=== PATIENT | male | born 1985 | race African-American/Black ===

== ENCOUNTER 2019-03-21 15:15 | Emergency (ER) | payer BC ==
[2019-03-21] MEDS ORDERED: cloNIDine 0.1 MG Tab PO ONE (15:34)
[2019-03-21] MEDS ORDERED: Ketorolac 60 MG/2 ML SDV IM ONE (15:40)
--- NOTE | 2019-03-21 15:53 | EDM.PDOC ---
ED HPI GENERAL MEDICAL PROBLEM - General Chief Complaint: Back Pain or Injury Stated Complaint: low back pain Time Seen by Provider: 03/21/19 15:23 Source of Information: Reports: Patient History Limitations: Reports: No Limitations - History of Present Illness INITIAL COMMENTS - FREE TEXT/NARRATIVE: HISTORY AND PHYSICAL: History of present illness: Patient is a 33-year-old male presents to the ED today for concern of low back pain/injury that occurred 1 week ago. Patient states he was filling up with those. Jugular water at [facility] when he had bent over incorrectly and felt a burning in his low back. Patient states that since then he's had a out of 10 back pain. Patient states he has taken ibuprofen without relief of symptoms. Patient states he does have a history of high blood pressure but has never received treatment for it. He states his blood pressure today is typical and normal for him on past visits he has had in several other clinics. Patient denies any other symptoms at this time. Patient denies loss or retention of bowel and bladder or saddle anesthesia. Patient denies fever, chills, chest pain, shortness of breath, or cough. Denies headache, neck stiff ness, change in vision, syncope, or near syncope. Denies nausea, vomiting, abdominal pain, diarrhea, constipation, or dysuria. Has not noted any blood in urine or stool. Patient has been eating and drinking appropriately. Review of systems: As per history of present illness and below otherwise all systems reviewed and negative. Past medical history: As per history of present illness and as reviewed below otherwise noncontributory. Surgical history: As per history of present illness and as reviewed below otherwise noncontributory. Social history: See social history for further information Family history: As per history of present illness and as reviewed below otherwise noncontributory. Physical exam: General: Patient is alert, oriented, and in no acute distress. Patient sitting comfortably on exam table. HEENT: Atraumatic, normocephalic, pupils equal and reactive bilaterally, negative for conjunctival pallor or scleral icterus, mucous membranes moist, TMs normal bilaterally, throat clear, neck supple, nontender, trachea midline. No drooling or trismus noted. No meningeal signs. No hot potato voice noted. Lungs: Clear to auscultation, breath sounds equal bilaterally, chest nontender. Heart: S1S2, regular rate and rhythm without overt murmur Abdomen: Soft, nondistended, nontender. Negative for masses or hepatosplenomegaly. Negative for costovertebral tenderness. Pelvis: Stable nontender. Genitourinary: Deferred. Rectal: Deferred. Skin: Intact, warm, dry. No lesions or rashes noted. Extremities/musculoskeletal: Atraumatic, negative for cords or calf pain. Neurovascular unremarkable. No obvious deformities of the complete spine. No step-offs, crepitus, or pain to palpation of the spinous process of the complete spine. Moderate pain to palpation of the paraspinous muscles surrounding the lumbar spine. Patient has full range of motion of the cervical, thoracic, and lumbar spine. Neuro: Awake, alert, oriented. Cranial nerves II through XII unremarkable. Cerebellum unremarkable. Motor and sensory unremarkable throughout. Exam nonfocal. Notes: Discussed the importance for follow-up with primary care provider. Voices understanding and is agreeable to plan of care. Denies any further questions or concerns at this time. Diagnostics: Lumbar x-ray, UA, Therapeutics: Clonidine, Toradol, Norflex Prescription: Diclofenac, Flexeril Impression: Low back pain/injury, unspecified History of untreated hypertension Plan: 1. Take medications as prescribed. You can also use Tylenol as directed for pain and discomfort. 2. Rest, ice, elevate the affected area. You can apply ice and or heat 15 minutes on, 15 minutes off. 3. Follow up with the primary care provider as discussed. Return to the ED as needed and as discussed. Definitive disposition and diagnosis as appropriate pending reevaluation and review of above. Back Pain Score (Numeric/FACES): 8 - Related Data Allergies Allergy/AdvReac Type Severity Reaction Status Date / Time No Known Allergies Allergy Verified 03/21/19 15:32 Home Meds: Home Meds Cyclobenzaprine [Flexeril] 10 mg PO TID PRN #10 tab 03/21/19 [Rx] Diclofenac Sodium [Voltaren] 75 mg PO BIDMEALS PRN #12 tab.cr 03/21/19 [Rx] Past Medical History HEENT History: Reports: None Cardiovascular History: Reports: Hypertension Respiratory History: Reports: None Gastrointestinal History: Reports: None Genitourinary History: Reports: None Musculoskeletal History: Reports: None Neurological History: Reports: None Psychiatric History: Reports: None Endocrine/Metabolic History: Reports: None Hematologic History: Reports: None Immunologic History: Reports: None Oncologic (Cancer) History: Reports: None Dermatologic History: Reports: None - Infectious Disease History Infectious Disease History: Reports: None - Past Surgical History Head Surgeries/Procedures: Reports: None Social & Family History - Family History Family Medical History: Noncontributory - Tobacco Use Smoking Status *Q: Never Smoker Second Hand Smoke Exposure: No - Caffeine Use Caffeine Use: Reports: Coffee - Recreational Drug Use Recreational Drug Use: No ED ROS GENERAL - Review of Systems Review Of Systems: ROS reveals no pertinent complaints other than HPI. ED EXAM,LOWER BACK PAIN/INJURY - Physical Exam Exam: See Below (See dictation) Course - Vital Signs Last Recorded V/S: Last Vital Signs Temp 36.9 C 03/21/19 15:33 Pulse 91 03/21/19 16:37 Resp 16 03/21/19 16:37 BP 174/109 H 03/21/19 16:37 Pulse Ox 97 03/21/19 16:37 - Orders/Labs/Meds Labs: Laboratory Tests 03/21/19 Range/Units 16:10 Urine Color YELLOW Urine Appearance CLEAR Urine pH 7.5 (5.0-8.0) Ur Specific [place] 1.015 (1.001-1.035) Urine Protein NEGATIVE (NEGATIVE) mg/dL Urine Glucose (UA) NEGATIVE (NEGATIVE) mg/dL Urine Ketones NEGATIVE (NEGATIVE) mg/dL Urine Occult Blood NEGATIVE (NEGATIVE) Urine Nitrite NEGATIVE (NEGATIVE) Urine Bilirubin NEGATIVE (NEGATIVE) Urine Urobilinogen 0.2 (<2.0) EU/dL Ur Leukocyte Esterase NEGATIVE (NEGATIVE) Meds: Medications Discontinued Medications Generic Name Dose Route Start Last Admin Trade Name Freq PRN Reason Stop Dose Admin Clonidine HCl 0.2 mg 03/21/19 15:34 03/21/19 15:44 Catapres PO 03/21/19 15:35 0.2 mg ONETIME ONE Administration Ketorolac Tromethamine 60 mg 03/21/19 15:40 03/21/19 15:48 Toradol IM 03/21/19 15:41 60 mg ONETIME ONE Administration Orphenadrine Citrate 60 mg 03/21/19 15:40 03/21/19 15:48 Norflex IM 03/21/19 15:41 60 mg NOW STA Administration Departure - Departure Time of Disposition: 17:02 Disposition: Home, Self-Care 01 Clinical Impression: History of hypertension Low back pain Qualifiers: Chronicity: acute Back pain laterality: unspecified Sciatica presence: without sciatica Qualified Code(s): M54.5 - Low back pain - Discharge Information Prescriptions: Cyclobenzaprine [Flexeril] 10 mg PO TID PRN #10 tab PRN Reason: Spasms Diclofenac Sodium [Voltaren] 75 mg PO BIDMEALS PRN #12 tab.cr PRN Reason: Pain Instructions: Acute Back Pain, Adult Referrals: PCP,None [Primary Care Provider] - Forms: ED Department Discharge Additional Instructions: The following information is given to patients seen in the emergency department who are being discharged to home. This information is to outline your options for follow-up care. We provide all patients seen in our emergency department with a follow-up referral. The need for follow-up, as well as the timing and circumstances, are variable depending upon the specifics of your emergency department visit. If you don't have a primary care physician on staff, we will provide you with a referral. We always advise you to contact your personal physician following an emergency department visit to inform them of the circumstance of the visit and for follow-up with them and/or the need for any referrals to a consulting specialist. The emergency department will also refer you to a specialist when appropriate. This referral assures that you have the opportunity for follow-up care with a specialist. All of these measure are taken in an effort to provide you with optimal care, which includes your follow-up. Under all circumstances we always encourage you to contact your private physician who remains a resource for coordinating your care. When calling for follow-up care, please make the office aware that this follow-up is from your recent emergency room visit. If for any reason you are refused follow-up, please contact the [facility] Emergency Department at and asked to speak to the emergency department charge nurse. [facility] Primary [facility] [address] [place] [id number] [id number] 1. Take medications as prescribed. You can also use Tylenol as directed for pain and discomfort. 2. Rest, ice, elevate the affected area. You can apply ice and or heat 15 minutes on, 15 minutes off. 3. Follow up with the primary care provider as discussed. Return to the ED as needed and as discussed.
--- NOTE | 2019-03-21 16:56 | CR ---
INDICATION: Back pain TECHNIQUE: Lumbar spine 3 view. COMPARISON: None FINDINGS: Bones: Straightening of the lumbar spine with normal alignment. No fractures or significant bone lesions. Joints: Mild disc space narrowing L4-L5 with anterior osteophytic changes. Soft tissues: Unremarkable. IMPRESSION: Disc space narrowing L4-L5 with anterior osteophytic changes. Straightening of the lumbar spine. Dictated by Bonifacio Mejias MD @ 03/21/2019 4:54:26 PM Dictated by: Bonifacio Mejias MD @ 03/21/2019 16:54:29 (Electronically Signed)
== END 2019-03-21 17:15 | disposition home or self-care (01) ==
LOC: MW.ED 15:15
DX: S39.92XA Unspecified injury of lower back, initial encounter (principal); I10 Essential (primary) hypertension; Z79.899 Other long term (current) drug therapy; X50.1XXA Overexertion from prolonged static or awkward postures, initial encounter
CPT/HCPCS: 72100; 81003; 96372; 99283; A9270; J1885; J2360

== ENCOUNTER 2019-11-12 18:25 | Emergency (ER) | payer BC ==
--- NOTE | 2019-11-12 19:13 | EDM.PDOC ---
ED HPI GENERAL MEDICAL PROBLEM - General Chief Complaint: Cardiovascular Problem Stated Complaint: DIZZNESS HEADACHE Time Seen by Provider: 11/12/19 19:06 Source of Information: Reports: Patient History Limitations: Reports: No Limitations - History of Present Illness INITIAL COMMENTS - FREE TEXT/NARRATIVE: 34-year-old gentleman presents to the emergency room with a chief complaint of headache and dizziness. Patient states that he has been having headaches for the past 2 to 3 days and he is dizzy also. Patient cannot explain why he is dizzy. Patient denies fever chills cough. Onset: Today Duration: Day(s): Location: Reports: Head Quality: Reports: Dull Severity: Moderate Improves with: Reports: None Worsens with: Reports: None Associated Symptoms: Reports: No Other Symptoms - Related Data Allergies Allergy/AdvReac Type Severity Reaction Status Date / Time No Known Allergies Allergy Verified 11/12/19 18:33 Home Meds: Home Meds amLODIPine [Norvasc] 5 mg PO DAILY 11/12/19 [History] hydroCHLOROthiazide [Hydrochlorothiazide] 25 mg PO DAILY 11/12/19 [History] Past Medical History HEENT History: Reports: None Cardiovascular History: Reports: Hypertension Respiratory History: Reports: None Gastrointestinal History: Reports: None Genitourinary History: Reports: None Musculoskeletal History: Reports: None Neurological History: Reports: None Psychiatric History: Reports: None Endocrine/Metabolic History: Reports: None Hematologic History: Reports: None Immunologic History: Reports: None Oncologic (Cancer) History: Reports: None Dermatologic History: Reports: None - Infectious Disease History Infectious Disease History: Reports: None - Past Surgical History Head Surgeries/Procedures: Reports: None HEENT Surgical History: Reports: None Cardiovascular Surgical History: Reports: None Respiratory Surgical History: Reports: None GI Surgical History: Reports: None Male Surgical History: Reports: None Endocrine Surgical History: Reports: None Neurological Surgical History: Reports: None Musculoskeletal Surgical History: Reports: None Oncologic Surgical History: Reports: None Social & Family History - Family History Family Medical History: Noncontributory - Tobacco Use Smoking Status *Q: Never Smoker Second Hand Smoke Exposure: No - Caffeine Use Caffeine Use: Reports: None - Recreational Drug Use Recreational Drug Use: No ED ROS GENERAL - Review of Systems Review Of Systems: See Below Constitutional: Reports: No Symptoms HEENT: Reports: No Symptoms Respiratory: Reports: No Symptoms Cardiovascular: Reports: No Symptoms, Blood Pressure Problem Endocrine: Reports: No Symptoms GI/Abdominal: Reports: No Symptoms : Reports: No Symptoms Musculoskeletal: Reports: No Symptoms Skin: Reports: No Symptoms Neurological: Reports: Dizziness, Headache Psychiatric: Reports: No Symptoms Hematologic/Lymphatic: Reports: No Symptoms Immunologic: Reports: No Symptoms ED EXAM, GENERAL - Physical Exam Exam: See Below Exam Limited By: No Limitations General Appearance: Alert, WD/WN, No Apparent Distress Eye Exam: Bilateral Eye: PERRL Ear Exam: Bilateral Ear: Auricle Normal, Canal Normal, TM normal Nose: Normal Inspection, Normal Mucosa, No Blood Throat/Mouth: Normal Inspection, Normal Lips, Normal Teeth Head: Atraumatic, Normocephalic Neck: Normal Inspection, Supple, Non-Tender, Full Range of Motion Respiratory/Chest: No Respiratory Distress, Lungs Clear, Normal Breath Sounds, No Accessory Muscle Use, Chest Non-Tender Cardiovascular: Normal Peripheral Pulses, Regular Rate, Rhythm, No Edema GI/Abdominal: Normal Bowel Sounds, Soft, Non-Tender (Male) Exam: Deferred Rectal (Males) Exam: Deferred Back Exam: Normal Inspection, Full Range of Motion Extremities: Normal Inspection, Normal Range of Motion, No Pedal Edema, Normal Capillary Refill Psychiatric: Normal Affect, Normal Mood Skin Exam: Warm, Dry, Intact, Normal Color, No Rash Lymphatic: No Adenopathy Course - Vital Signs Text/Narrative:: The patient's CAT scan shows questionable ischemic changes questionable demyelinating disease. Patient will be followed with primary care to follow this. Patient's blood pressure came down on its own without medication to 130 systolic over 80.. Assessment on this patient is viral syndrome/dizziness : Patient will be given anti-inflammatory medications. Last Recorded V/S: Last Vital Signs Temp 97.6 F 11/12/19 18:31 Pulse 88 11/12/19 19:53 Resp 18 11/12/19 18:31 BP 148/96 H 11/12/19 19:53 Pulse Ox 96 11/12/19 19:53 - Orders/Labs/Meds Labs: Laboratory Tests 11/12/19 11/12/19 Range/Units 19:25 19:25 WBC 6.41 (4.0-11.0) K/uL RBC 5.17 (4.50-5.90) M/uL Hgb 14.1 (13.0-17.0) g/dL Hct 42.6 (38.0-50.0) % MCV 82.4 (80.0-98.0) fL MCH 27.3 (27.0-32.0) pg MCHC 33.1 (31.0-37.0) g/dL RDW Std Deviation 39.9 (28.0-62.0) fl RDW Coeff of Lady 13 (11.0-15.0) % Plt Count 208 (150-400) K/uL MPV 10.20 (7.40-12.00) fL Neut % (Auto) 52.8 (48.0-80.0) % Lymph % (Auto) 38.8 (16.0-40.0) % B[place]so[place] % (Auto) 7.0 (0.0-15.0) % Eos % (Auto) 1.1 (0.0-7.0) % Baso % (Auto) 0.3 (0.0-1.5) % Neut # (Auto) 3.4 (1.4-5.7) K/uL Lymph # (Auto) 2.5 H (0.6-2.4) K/uL [place] # (Auto) 0.5 (0.0-0.8) K/uL Eos # (Auto) 0.1 (0.0-0.7) K/uL Baso # (Auto) 0.0 (0.0-0.1) K/uL Nucleated RBC % 0.0 /100WBC Nucleated RBCs # 0 K/uL Sodium 138 (136-148) mmol/L Potassium 3.7 (3.5-5.1) mmol/L Chloride 101 (98-107) mmol/L Carbon Dioxide 29.6 (21.0-32.0) mmol/L BUN 14 (7.0-18.0) mg/dL Creatinine 1.3 (0.8-1.3) mg/dL Est Cr Clr Drug Dosing 82.67 mL/min Estimated GFR (MDRD) > 60.0 ml/min Glucose 129 H (74-106) mg/dL Calcium 9.0 (8.5-10.1) mg/dL Total Bilirubin 0.3 (0.2-1.0) mg/dL AST 20 (15-37) IU/L ALT 34 (14-63) IU/L Alkaline Phosphatase 82 (46-116) U/L Total Protein 7.7 (6.4-8.2) g/dL Albumin 3.9 (3.4-5.0) g/dL Globulin 3.8 (2.6-4.0) g/dL Albumin/Globulin Ratio 1.0 (0.9-1.6) Meds: Medications Discontinued Medications Generic Name Dose Route Start Last Admin Trade Name Freq PRN Reason Stop Dose Admin Atenolol 25 mg 11/12/19 19:16 11/12/19 20:16 Tenormin PO 11/12/19 19:17 Not Given ONETIME ONE Departure - Departure Time of Disposition: 20:38 Disposition: Home, Self-Care 01 Condition: Good Clinical Impression: Viral syndrome Instructions: Viral Illness, Adult Referrals: Narciso Thomas DO [Primary Care Provider] - Forms: ED Department Discharge Sepsis Event Note - Evaluation Sepsis Screening Result: No Definite Risk - Focused Exam Vital Signs: Vital Signs Temp Pulse Resp BP Pulse Ox 11/12/19 19:53 88 148/96 H 96 11/12/19 18:31 97.6 F 95 18 173/105 H 98 Date Exam was Performed: 11/12/19 Time Exam was Performed: 20:36
[2019-11-12] MEDS ORDERED: Atenolol 25 MG Tab PO ONE (19:16)
[2019-11-12 19:57] LABS: BLOOD UREA NITROGEN,BUN 14 mg/dL (7.0-18.0); CARBON DIOXIDE,CO2 29.6 mmol/L (21.0-32.0); CHLORIDE,CL 101 mmol/L (98-107); GLUCOSE RANDOM 129 mg/dL (74-106); POTASSIUM,K 3.7 mmol/L (3.5-5.1); SODIUM,NA 138 mmol/L (136-148)
--- NOTE | 2019-11-12 20:01 | CT ---
INDICATION: Dizziness COMPARISON: None available TECHNIQUE: CT examination of the head was performed with 3 mm thick axial sections without intravenous contrast. Images were obtained from the vertex of the skull through the skull base, and I examined the images with the brain and bone windows. Please note that all CT scans at this facility use dose modulation, iterative reconstruction, and/or weight-based dosing when appropriate to reduce radiation dose to as low as reasonably achievable. FINDINGS: There are multiple low-density regions scattered throughout the periventricular and subcortical white matter throughout both cerebral hemispheres these are of different density, some quite low in density, others only mildly low intensity. There is no associated mass effect with any of these lesions. A similar low-density lesion is seen in the right superior maki. A small lesion is seen in the right caudate head. The findings are suspicious for multiple areas of small vessel ischemia, quite unusual for patient of this age. The differential for small-vessel ischemic changes in a young patient includes vasculitis, sickle cell disease, or Bullock Bullock. The absence of large vessel ischemia argues against multiple emboli. The findings could be the result of demyelination as seen in multiple sclerosis, but the involvement of the maki and right caudate head would be atypical. The ventricles and sulci are normal in appearance for the patient`s age. There is asymmetry of the lateral ventricles, with the left lateral ventricle being slightly larger than the right, within limits of normal variation. The visualized portions of the orbits are normal in appearance. The visualized paranasal sinuses and mastoids are clear. The osseous structures are normal in their appearance with no sign of abnormality in the skull base or calvarium. There is an area of soft tissue thickening of the high central and right posterior parietal scalp and subgaleal region, consistent with an old injury. There is no sign of injury to the underlying skull or brain. IMPRESSION: No sign of acute injury to the brain. Findings consistent with moderate small vessel ischemia, much more prominent than expected for a patient of this age. Please see the discussion above. Cannot exclude demyelination, although the distribution of lesions is not typical for demyelination. Please note that all CT scans at this facility use dose modulation, iterative reconstruction, and/or weight-based dosing when appropriate to reduce radiation dose to as low as reasonably achievable. Dictated by Jabari Griffiths MD @ Nov 12 2019 7:50PM Signed by Dr. Jabari Griffiths @ Nov 12 2019 7:59PM
== END 2019-11-12 20:54 | disposition home or self-care (01) ==
LOC: MW.ED 18:25
DX: B34.9 Viral infection, unspecified (principal); I10 Essential (primary) hypertension; Z79.899 Other long term (current) drug therapy
CPT/HCPCS: 36415; 70450; 70450-26; 80053; 85025; 93005; 99282; 99284-25

== ENCOUNTER 2021-01-06 00:39 | Emergency (ER) | payer SELFPAY ==
[2021-01-06] MEDS ORDERED: Sodium Chloride 0.9% 2.5 ML Syringe FLUSH PRN (01:03)
[2021-01-06] MEDS ORDERED: Sodium Chloride 0.9% 10 ML Syringe FLUSH PRN (01:03)
[2021-01-06] MEDS ORDERED: Ondansetron 4 MG/2 ML SDV IVPUSH ONE (01:04)
[2021-01-06] MEDS ORDERED: Sodium Chloride 0.9% 1,000 ML IV ONE ×2 (01:04→01:51)
[2021-01-06 01:40] LABS: BLOOD UREA NITROGEN,BUN 16 mg/dL (7.0-18.0); CHLORIDE,CL 98 mmol/L (98-107); GLUCOSE RANDOM 302 mg/dL (74-106); POTASSIUM,K 3.5 mmol/L (3.5-5.1); SODIUM,NA 135 mmol/L (136-148)
--- NOTE | 2021-01-06 01:40 | CT ---
INDICATION: Dizzy TECHNIQUE: CT Head without i.v. contrast. Coronal and sagittal reformats were obtained. COMPARISON: 11/12/2019 FINDINGS: CSF space: The ventricles are normal for age. 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 [id number] but stable patchy regions of low attenuation are present in the periventricular white matter. No mass-effect or midline shift is seen. Calvarium: The visualized paranasal sinuses are well aerated. The mastoid air cells are clear. The visualized orbits are grossly unremarkable. The calvarium is unremarkable in appearance with no fractures identified. IMPRESSIONS: 1. No evidence of acute infarction, intracranial hemorrhage, or mass-effect seen. 2. 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 [id number] but stable patchy regions of low attenuation are present in the periventricular white matter. Clinical correlation is recommended to exclude multiple sclerosis, vasculitis, moyamoya, mitochondrial encephalopathy, or CADASIL. Dictated by Burton Dumont MD @ 01/06/2021 1:39:13 AM Please note that all CT scans at this facility use dose modulation, iterative reconstruction, and/or weight-based dosing when appropriate to reduce radiation dose to as low as reasonably achievable. Dictated by: Burton Dumont MD @ 01/06/2021 01:39:20 (Electronically Signed)
[2021-01-06] MEDS ORDERED: Diltiazem 180 MG Cap.CD PO STA (02:55)
--- NOTE | 2021-01-06 03:02 | EDM.PDOC ---
ED HPI GENERAL MEDICAL PROBLEM - General Chief Complaint: General Stated Complaint: DIZZY Time Seen by Provider: 01/06/21 01:05 - History of Present Illness INITIAL COMMENTS - FREE TEXT/NARRATIVE: HISTORY AND PHYSICAL: History of present illness: 35-year-old gentleman with a history significant for hypertension who presents ER today complaining of dizziness, nausea, vomiting x1 day. Patient reports that he has been noncompliant with his medications and does not have a physician at this time but he is recently acquired insurance and will be able to get a physician. Patient denies any recent fevers, shakes, chills, diarrhea, dysuria, frequency, urgency, chest pain, shortness of breath, abdominal pain, URI symptoms. Patient reports that he feels weak when he walks. Patient reports when he stands he feels like the room is spinning but feels better when he is laying down. Patient denies any history of diabetes. Patient denies any history of strokes or heart attacks in the past although his prior CT had some concerns regarding old strokes. Review of systems: As per history of present illness and below otherwise all systems reviewed and negative. Past medical history: As per history of present illness and as reviewed below otherwise noncontributory. Surgical history: As per history of present illness and as reviewed below otherwise noncontributory. Social history: No reported history of drug or alcohol abuse. Family history: As per history of present illness and as reviewed below otherwise noncontributory. Physical exam: This patient was seen and evaluated during the 2019 SARS-CoV-2 novel coronavirus pandemic period. Community viral transmission is ongoing at time of this encounter and the emergency department is operating under pandemic response procedures. Constitutional: Patient is oriented to person, place, and time. Appears well- developed and well-nourished. No distress. HEENT: Moist mucous membranes Head: Normocephalic and atraumatic Eyes: Right eye exhibits no discharge. Left eye exhibits no discharge. No scleral icterus, no papilledema, pupils equally round and reactive to light, extraocular motions intact, no nystagmus. Neck: Normal range of motion. No tracheal deviation present. Neck supple, no nuchal rigidity, no photophobia, no Kernig's sign or Brudzinski sign, patient does not present with signs or symptoms of be consistent with meningitis. Cardiovascular: Normal rate and regular rhythm. Pulmonary: Effort normal, no respiratory distress. No wheezing rales or rhonchi Abd: Soft, nondistended, no rebound/guarding, no psoas or obturator signs, no tenderness at Mcberney's point, no Lockhart's sign. Pt does not present with an exam that would be consistent with an acute surgical abdomen at this time, nontender to palpation Musculoskeletal: Normal range of motion no peripheral edema Neuro: A&Ox3. Cranial nerves II-XII grossly intact, 5/5 strength to bilateral upper and lower extremities, sensation intact to bilateral upper and lower extremities, no nystagmus, PERRLA, EOMI, normal speech, proprioception intact to bilateral lower extremities, normal finger to nose test, gait normal. Skin: [place], warm and dry. Psychiatric: Normal mood and affect. Behavior is normal. Judgment and thought content normal. Nursing note and vital signs have been reviewed Diagnostics: Patient's labs were obtained. Patient does have a slightly elevated blood sugar of 300. Patient's urinalysis is unremarkable. Patient's UDS and alcohol levels are negative. EKG: As interpreted by ER physician: Lorrie: Nonspecific ST-T wave abnormalities Normal axis No evidence of ST elevation [place] Normal sinus rhythm heart rate of 86 CT the head reveals no evidence of acute infarction, intracranial hemorrhage or mass-effect. 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 Mild to moderate but stable patchy regions of low-attenuation are present in the periventricular white matter. Clinical correlation is recommended. Fluid multiple sclerosis, vasculitis, moyamoya, mitochondrial encephalopathy or cadasil. Copy of the CT scan was given to the patient. I have discussed the abnormalities including the chronic changes that were identified on the CT scan with the patient and the need to follow-up with his primary care physician. Therapeutics: Cardizem 180 CD NSS x2 L Zofran Assessment and plan: This is a 35-year-old gentleman who presents to the ER today complaining of nausea, dizziness, vomiting and was noted to have a markedly elevated blood pressure. Patient reports he has been noncompliant for 1 year with his medication regimen. Patient denies any other neurological symptoms. Patient has no other complaints at this time. Etiology the patient's symptoms are unclear however it is likely multifactorial. We will attempt to assist with initiating correction of his blood pressure with Cardizem. Patient will be given a dose here in the ED and will be discharged with a prescription for Cardizem 180 CD to take daily. Patient has been instructed as to the need to follow-up with a primary care physician to follow his blood pressure. Patient was also informed of his elevated blood sugar and the need to see his doctor to assist him with dietary changes. Patient has been given 2 L of fluid and we will repeat his blood sugar prior to discharge. Patient be discharged home with a prescription for Zofran to assist with his symptoms of nausea. Patient currently reports that his dizziness is resolved after the IV fluids and his nausea also has resolved and he has been tolerating liquids in the ED. Reassessment at the time of disposition demonstrates that the patient is in no acute distress. The patient has remained stable throughout the entire ED visit and is without objective evidence for acute process requiring urgent intervention or hospitalization. The patient is stable for discharge, counseling is provided as documented above, discussed symptomatic treatment and specific conditions for return. I have spoken with the patient/caregiver and discussed todays findings, in addition to providing specific details for the plan of care. Questions are answered and there is agreement with the plan. Definitive disposition and diagnosis as appropriate pending reevaluation and review of above. - Related Data Allergies Allergy/AdvReac Type Severity Reaction Status Date / Time No Known Allergies Allergy Verified 01/06/21 00:55 Home Meds: Home Meds amLODIPine [Norvasc] 5 mg PO DAILY 11/12/19 [History] hydroCHLOROthiazide [Hydrochlorothiazide] 25 mg PO DAILY 11/12/19 [History] Ondansetron [Zofran ODT] 4 mg PO Q6H PRN #12 tab.dis 01/06/21 [Rx] dilTIAZem HCL [Cardizem Cd] 180 mg PO DAILY #30 cap.er.24h 01/06/21 [Rx] Past Medical History HEENT History: Reports: None Cardiovascular History: Reports: Hypertension Respiratory History: Reports: None Gastrointestinal History: Reports: None Genitourinary History: Reports: None Musculoskeletal History: Reports: None Neurological History: Reports: None Psychiatric History: Reports: Anxiety Endocrine/Metabolic History: Reports: None Hematologic History: Reports: None Immunologic History: Reports: None Oncologic (Cancer) History: Reports: None Dermatologic History: Reports: None - Infectious Disease History Infectious Disease History: Reports: None - Past Surgical History Head Surgeries/Procedures: Reports: None HEENT Surgical History: Reports: None Cardiovascular Surgical History: Reports: None Respiratory Surgical History: Reports: None GI Surgical History: Reports: None Male Surgical History: Reports: None Endocrine Surgical History: Reports: None Neurological Surgical History: Reports: None Musculoskeletal Surgical History: Reports: None Oncologic Surgical History: Reports: None Social & Family History - Family History Family Medical History: No Pertinent Family History - Caffeine Use Caffeine Use: Reports: None - Recreational Drug Use Recreational Drug Use: No ED ROS GENERAL - Review of Systems Review Of Systems: See Below ED EXAM, GENERAL - Physical Exam Exam: See Below Course - Vital Signs Last Recorded V/S: Last Vital Signs Temp 96.5 F L 01/06/21 00:50 Pulse 88 01/06/21 02:30 Resp 18 01/06/21 02:30 BP 167/113 H 01/06/21 02:30 Pulse Ox 95 01/06/21 02:30 - Orders/Labs/Meds Orders: Active Orders 24 hr Category Date Time Status EKG Documentation Completion [RC] AM Care 01/06/21 01:03 Active Diltiazem [Cardizem CD] Med 01/06/21 02:55 Stat 180 mg PO ONETIME STA Sodium Chloride 0.9% [Saline Flush] Med 01/06/21 01:03 Active 10 ml FLUSH ASDIRECTED PRN Sodium Chloride 0.9% [Saline Flush] Med 01/06/21 01:03 Active 2.5 ml FLUSH ASDIRECTED PRN Saline Lock Insert [OM.PC] Stat Oth 01/06/21 01:03 Ordered Medication Orders Sodium Chloride (Saline Flush) 10 ml FLUSH ASDIRECTED PRN PRN Reason: Keep Vein Open Sodium Chloride (Saline Flush) 2.5 ml FLUSH ASDIRECTED PRN PRN Reason: Keep Vein Open Labs: Laboratory Tests 01/06/21 01/06/21 01/06/21 Range/Units 01:05 01:05 01:05 WBC 6.31 (4.0-11.0) K/uL RBC 5.21 (4.50-5.90) M/uL Hgb 13.5 (13.0-17.0) g/dL Hct 41.0 (38.0-50.0) % MCV 78.7 L (80.0-98.0) fL MCH 25.9 L (27.0-32.0) pg MCHC 32.9 (31.0-37.0) g/dL RDW Std Deviation 38.2 (28.0-62.0) fl RDW Coeff of Lady 13 (11.0-15.0) % Plt Count 180 (150-400) K/uL MPV 11.20 (7.40-12.00) fL Neut % (Auto) 41.1 L (48.0-80.0) % Lymph % (Auto) 49.3 H (16.0-40.0) % Bowman % (Auto) 8.2 (0.0-15.0) % Eos % (Auto) 1.1 (0.0-7.0) % Baso % (Auto) 0.3 (0.0-1.5) % Neut # (Auto) 2.6 (1.4-5.7) K/uL Lymph # (Auto) 3.1 H (0.6-2.4) K/uL Bowman # (Auto) 0.5 (0.0-0.8) K/uL Eos # (Auto) 0.1 (0.0-0.7) K/uL Baso # (Auto) 0.0 (0.0-0.1) K/uL Sodium 135 L (136-148) mmol/L Potassium 3.5 (3.5-5.1) mmol/L Chloride 98 (98-107) mmol/L Carbon Dioxide 26.0 (21.0-32.0) mmol/L BUN 16 (7.0-18.0) mg/dL Creatinine 1.5 H (0.8-1.3) mg/dL Est Cr Clr Drug Dosing 73.21 mL/min Estimated GFR (MDRD) > 60.0 ml/min Glucose 302 H (74-106) mg/dL Calcium 9.1 (8.5-10.1) mg/dL Total Bilirubin 0.3 (0.2-1.0) mg/dL AST 19 (15-37) IU/L ALT 34 (14-63) IU/L Alkaline Phosphatase 94 (46-116) U/L Troponin I < 0.050 (0.000-0.056) ng/mL Total Protein 7.8 (6.4-8.2) g/dL Albumin 3.7 (3.4-5.0) g/dL Globulin 4.1 H (2.6-4.0) g/dL Albumin/Globulin Ratio 0.9 (0.9-1.6) Lipase 90 (73-393) U/L Urine Color Urine Appearance Urine pH (5.0-8.0) Ur Specific [place] (1.001-1.035) Urine Protein (NEGATIVE) mg/dL Urine Glucose (UA) (NEGATIVE) mg/dL Urine Ketones (NEGATIVE) mg/dL Urine Occult Blood (NEGATIVE) Urine Nitrite (NEGATIVE) Urine Bilirubin (NEGATIVE) Urine Urobilinogen (<2.0) EU/dL Ur Leukocyte Esterase (NEGATIVE) Urine RBC (0-2/HPF) Urine WBC (0-5/HPF) Ur Epithelial Cells (NONE-FEW) Urine Bacteria (NEGATIVE) Urine Mucus (NONE-MOD) Urine Opiates Screen (NEGATIVE) Ur Oxycodone Screen (NEGATIVE) Urine Methadone Screen (NEGATIVE) Ur Barbiturates Screen (NEGATIVE) Ur Phencyclidine Scrn (NEGATIVE) Ur Amphetamine Screen (NEGATIVE) U Methamphetamines Scrn (NEGATIVE) U Benzodiazepines Scrn (NEGATIVE) U Cocaine Metab Screen (NEGATIVE) U Marijuana (THC) Screen (NEGATIVE) Ethyl Alcohol < 3.0 mg/dL 01/06/21 01/06/21 Range/Units 02:25 02:25 WBC (4.0-11.0) K/uL RBC (4.50-5.90) M/uL Hgb (13.0-17.0) g/dL Hct (38.0-50.0) % MCV (80.0-98.0) fL MCH (27.0-32.0) pg MCHC (31.0-37.0) g/dL RDW Std Deviation (28.0-62.0) fl RDW Coeff of Lady (11.0-15.0) % Plt Count (150-400) K/uL MPV (7.40-12.00) fL Neut % (Auto) (48.0-80.0) % Lymph % (Auto) (16.0-40.0) % Bowman % (Auto) (0.0-15.0) % Eos % (Auto) (0.0-7.0) % Baso % (Auto) (0.0-1.5) % Neut # (Auto) (1.4-5.7) K/uL Lymph # (Auto) (0.6-2.4) K/uL Bowman # (Auto) (0.0-0.8) K/uL Eos # (Auto) (0.0-0.7) K/uL Baso # (Auto) (0.0-0.1) K/uL Sodium (136-148) mmol/L Potassium (3.5-5.1) mmol/L Chloride (98-107) mmol/L Carbon Dioxide (21.0-32.0) mmol/L BUN (7.0-18.0) mg/dL Creatinine (0.8-1.3) mg/dL Est Cr Clr Drug Dosing mL/min Estimated GFR (MDRD) ml/min Glucose (74-106) mg/dL Calcium (8.5-10.1) mg/dL Total Bilirubin (0.2-1.0) mg/dL AST (15-37) IU/L ALT (14-63) IU/L Alkaline Phosphatase (46-116) U/L Troponin I (0.000-0.056) ng/mL Total Protein (6.4-8.2) g/dL Albumin (3.4-5.0) g/dL Globulin (2.6-4.0) g/dL Albumin/Globulin Ratio (0.9-1.6) Lipase (73-393) U/L Urine Color YELLOW Urine Appearance CLEAR Urine pH 6.0 (5.0-8.0) Ur Specific [place] 1.020 (1.001-1.035) Urine Protein 30 H (NEGATIVE) mg/dL Urine Glucose (UA) >=1000 (NEGATIVE) mg/dL Urine Ketones NEGATIVE (NEGATIVE) mg/dL Urine Occult Blood NEGATIVE (NEGATIVE) Urine Nitrite NEGATIVE (NEGATIVE) Urine Bilirubin NEGATIVE (NEGATIVE) Urine Urobilinogen 0.2 (<2.0) EU/dL Ur Leukocyte Esterase NEGATIVE (NEGATIVE) Urine RBC NONE SEEN (0-2/HPF) Urine WBC 0-1 (0-5/HPF) Ur Epithelial Cells RARE (NONE-FEW) Urine Bacteria RARE (NEGATIVE) Urine Mucus LIGHT (NONE-MOD) Urine Opiates Screen NEGATIVE (NEGATIVE) Ur Oxycodone Screen NEGATIVE (NEGATIVE) Urine Methadone Screen NEGATIVE (NEGATIVE) Ur Barbiturates Screen NEGATIVE (NEGATIVE) Ur Phencyclidine Scrn NEGATIVE (NEGATIVE) Ur Amphetamine Screen NEGATIVE (NEGATIVE) U Methamphetamines Scrn NEGATIVE (NEGATIVE) U Benzodiazepines Scrn NEGATIVE (NEGATIVE) U Cocaine Metab Screen NEGATIVE (NEGATIVE) U Marijuana (THC) Screen NEGATIVE (NEGATIVE) Ethyl Alcohol mg/dL Meds: Medications Generic Name Dose Route Start Last Admin Trade Name Freq PRN Reason Stop Dose Admin Sodium Chloride 10 ml 01/06/21 01:03 Saline Flush FLUSH ASDIRECTED PRN Keep Vein Open Sodium Chloride 2.5 ml 01/06/21 01:03 Saline Flush FLUSH ASDIRECTED PRN Keep Vein Open Discontinued Medications Generic Name Dose Route Start Last Admin Trade Name Freq PRN Reason Stop Dose Admin Sodium Chloride 1,000 mls @ 999 mls/hr 01/06/21 01:04 01/06/21 01:13 Normal Saline IV 01/06/21 02:04 999 mls/hr .Bolus ONE Administration Sodium Chloride 1,000 mls @ 999 mls/hr 01/06/21 01:51 01/06/21 02:32 Normal Saline IV 01/06/21 02:51 999 mls/hr .Bolus ONE Administration Ondansetron HCl 4 mg 01/06/21 01:04 01/06/21 01:13 Zofran IVPUSH 01/06/21 01:05 4 mg ONETIME ONE Administration Departure - Departure Time of Disposition: 03:05 Disposition: Home, Self-Care 01 Condition: Good Clinical Impression: Hyperglycemia, History of hypertension, Hypertension, Dizziness, Dehydration - Discharge Information Instructions: Dehydration, Adult, [id number]-[id number], Hyperglycemia, [id number], Hypertension, Adult, [id number], Dizziness, [id number] Referrals: PCP,None [Primary Care Provider] - Additional Instructions: Your seen and evaluated in the ER today secondary to dizziness. The etiology of your symptoms are likely multifactorial. You might have a viral illness that might be starting. Your blood pressure was markedly elevated in the ER and your blood sugar also was elevated. All these together can cause you to have symptoms of dizziness with nausea. 1. Hypertension: Your blood pressure is markedly elevated. You have been noncompliant with your blood pressure medications for approximately 1 year now. You must see a family doctor so they can assist you with managing your blood pressure and your medications. We will initiate Cardizem CD 180 mg to take daily until you are able to see a family doctor to see if they agree with this course. Not taking her blood pressure medicines can lead to dangerous outcomes such as strokes, heart attacks, kidney failure. Please make sure you get your prescription filled and start taking it tomorrow. You have been given your first dose already in the ED here. 2. Hyperglycemia: Your blood sugar here was elevated. It was approximately 300. High blood sugar can cause dizziness, dehydration, and overall sense of not feeling well. This could also lead to diabetes which can also affect your heart, kidneys, strokes. Please see your family doctor so they can assist you with dietary changes and decide if they need to put you on medications for diabetes. Please avoid all simple sugars such as candy, sweets, desserts with sugar in them. Please avoid all drinks that are not dietary such as regular soda, fruit juices. 3. Dizziness: This is likely multifactorial from hypertension, high blood sugar, possible viral illness. You will be given a prescription for Zofran to assist you with your nausea and vomiting. 4. Abnormal CT scan: Your CT scan shows that you had an old stroke. This is something that is likely related to your elevated blood pressure however you should take the CT scan report that I have given you to your family doctor's a ppointment so they can investigate this further for you. The following information is given to patients seen in the emergency department who are being discharged to home. This information is to outline your options for follow-up care. We provide all patients seen in our emergency department with a follow-up referral. The need for follow-up, as well as the timing and circumstances, are variable d epending upon the specifics of your emergency department visit. If you don't have a primary care physician on staff, we will provide you with a referral. We always advise you to contact your personal physician following an emergency department visit to inform them of the circumstance of the visit and for follow-up with them and/or the need for any referrals to a consulting specialist. The emergency department will also refer you to a specialist when appropriate. This referral assures that you have the opportunity for follow-up care with a specialist. All of these measure are taken in an effort to provide you with optimal care, which includes your follow-up. Under all circumstances we always encourage you to contact your private physician who remains a resource for coordinating your care. When calling for follow-up care, please make the office aware that this follow-up is from your recent emergency room visit. If for any reason you are refused follow-up, please contact the [facility] Emergency Department at and asked to speak to the emergency department charge nurse. [facility] [address] [place] [id number] [facility] [address] [place] [id number] Sepsis Event Note (ED) - Evaluation Sepsis Screening Result: No Definite Risk - Focused Exam Vital Signs: Vital Signs Temp Pulse Resp BP Pulse Ox 01/06/21 02:30 88 18 167/113 H 95 01/06/21 00:50 96.5 F L 90 18 186/115 H 96 - My Orders Last 24 Hours: My Active Orders 01/06/21 01:03 EKG Documentation Completion [RC] AM Sodium Chloride 0.9% [Saline Flush] 10 ml FLUSH ASDIRECTED PRN Sodium Chloride 0.9% [Saline Flush] 2.5 ml FLUSH ASDIRECTED PRN Saline Lock Insert [OM.PC] Stat 01/06/21 02:55 Diltiazem [Cardizem CD] 180 mg PO ONETIME STA - Assessment/Plan Last 24 Hours: My Active Orders 01/06/21 01:03 EKG Documentation Completion [RC] AM Sodium Chloride 0.9% [Saline Flush] 10 ml FLUSH ASDIRECTED PRN Sodium Chloride 0.9% [Saline Flush] 2.5 ml FLUSH ASDIRECTED PRN Saline Lock Insert [OM.PC] Stat 01/06/21 02:55 Diltiazem [Cardizem CD] 180 mg PO ONETIME STA
== END 2021-01-06 04:00 | disposition home or self-care (01) ==
LOC: MW.ED 00:39
DX: E86.0 Dehydration (principal); I10 Essential (primary) hypertension; R73.9 Hyperglycemia, unspecified; Z79.899 Other long term (current) drug therapy
CPT/HCPCS: 36415; 70450; 80053; 80179; 80305; 81001; 82962; 83690; 84484; 85025; 93005; 96374; 99284; A9270; J2405; J7030; 93010; 99283

== ENCOUNTER 2021-01-18 13:44 | Observation (INO) | payer OTHER ==
[2021-01-18] MEDS ORDERED: Sodium Chloride 0.9% 2.5 ML Syringe FLUSH PRN (14:07)
[2021-01-18] MEDS ORDERED: Sodium Chloride 0.9% 1,000 ML IV ONE (14:07)
[2021-01-18] MEDS ORDERED: Sodium Chloride 0.9% 10 ML Syringe FLUSH PRN (14:07)
--- NOTE | 2021-01-18 14:28 | PCM.EKG ---
#1 Interpretation EKG Date: 01/18/21 EKG Interpretation Comments: Heart rate = 77 bpm, normal sinus rhythm, left ventricular hypertrophy, T wave inversions in III, AVF, normal QRS interval, no STEMI. EKG and rhythm strip interpreted by me at 1400
[2021-01-18 14:53] LABS: BLOOD UREA NITROGEN,BUN 10 mg/dL (7.0-18.0); CARBON DIOXIDE,CO2 28.3 mmol/L (21.0-32.0); CHLORIDE,CL 101 mmol/L (98-107); GLUCOSE RANDOM 170 mg/dL (74-106); SODIUM,NA 137 mmol/L (136-148)
--- NOTE | 2021-01-18 15:19 | CR ---
Indication: Dizziness Comparison: None available. Technique: Single AP view chest Findings: There is no focal consolidation, effusion, or pneumothorax. The cardiomediastinal silhouette is within normal limits. The bony thorax is grossly intact. Impression: No acute cardiopulmonary abnormality. Dictated by Pranav Dey MD @ Jan 18 2021 3:16PM Signed by Dr. Pranav Dey @ Jan 18 2021 3:17PM
[2021-01-18] MEDS ORDERED: Meclizine 25 MG Tab PO ONE (15:57)
[2021-01-18] MEDS ORDERED: Ondansetron 4 MG/2 ML SDV IVPUSH ONE ×2 (15:57→16:38)
[2021-01-18] MEDS ORDERED: Iopamidol 755 MG/ML 500 ML Multipack Bottle IVPUSH STA (16:43)
--- NOTE | 2021-01-18 17:28 | CT ---
INDICATION: Dizziness. Loss of balance. Comparison : CT head 01/06/2021 Technique : Noncontrast CT head. CTA of the head (Isovue 371 cc) FINDINGS: CT head: Normal brain parenchymal morphology. Stable patchy low-attenuation change within the white matter of both cerebral hemispheres. Findings may represent chronic small vessel ischemic changes. However, given the patient`s age, differential considerations include demyelinating disease. Consider followup with MRI for further evaluation. No acute intracranial hemorrhage, acute infarct, mass-effect, or fracture. No midline shift. No abnormal ventricular dilatation. CTA head: Bilateral carotid siphons are patent. Patent nooksack Barboza with diminutive bilateral post communicating arteries. Visualized bilateral PAZ and MCA circulations are patent without focal stenosis or aneurysm. Bilateral GAMES DEALER circulations are patent without stenosis or aneurysm. Patent codominant vertebrobasilar system. IMPRESSION: Noncontrast CT head: 1. No acute intracranial abnormality. 2. Normal brain parenchymal morphology. Stable patchy low-attenuation change within the white matter posterior hemispheres. Findings may represent chronic small vessel ischemic changes, postinfectious or inflammatory change, or demyelinating disease. Consider follow-up with MRI for further evaluation CTA head: 1. Normal CTA head Dictated by Andrez De Dios MD @ 01/18/2021 5:27:54 PM Please note that all CT scans at this facility use dose modulation, iterative reconstruction, and/or weight-based dosing when appropriate to reduce radiation dose to as low as reasonably achievable. Dictated by: Andrez De Dios MD @ 01/18/2021 17:28:05 (Electronically Signed)
--- NOTE | 2021-01-18 17:29 | EDM.PDOC ---
ED HPI GENERAL MEDICAL PROBLEM - General Chief Complaint: General Stated Complaint: CLINIC TRANSFER HBP Time Seen by Provider: 01/18/21 13:54 Source of Information: Reports: Patient History Limitations: Reports: No Limitations - History of Present Illness INITIAL COMMENTS - FREE TEXT/NARRATIVE: HISTORY AND PHYSICAL: History of present illness: Patient is a 35-year-old male who presents to the ED today with concern of dizziness and stating he feels like the room is spinning which causes him to get off balance since this morning. Patient states he has had an episode of this prior that he was seen in the emergency room for on 01/06/2021 and states at that time he had the same symptoms as he is having today. Patient states that he was told he had high blood pressure was started on a blood pressure medication but states he is no longer taking this. Patient states that he has not had any episodes of this dizziness since his prior ER visit but states he had them again today. Patient states when he gets dizzy, he feels nauseous and vomits. Patient denies any other health history or any other symptoms or concerns. Patient denies any head injury or trauma. Patient denies fever, chills, chest pain, shortness of breath, or cough. Denies headache, neck stiff ness, change in vision, syncope, or near syncope. Denies abdominal pain, diarrhea, constipation, or dysuria. Has not noted any blood in urine or stool. Patient has been eating and drinking appropriately. Review of systems: As per history of present illness and below otherwise all systems reviewed and negative. Past medical history: As per history of present illness and as reviewed below otherwise noncontributory. Surgical history: As per history of present illness and as reviewed below otherwise n oncontributory. Social history: See social history for further information Family history: As per history of present illness and as reviewed below otherwise noncontributory. Physical exam: General: Patient is alert, oriented, and in no acute distress. Patient laying comfortably on exam table. BP 160s/100s otherwise vitally stable on exam. HEENT: Atraumatic, normocephalic, pupils equal and reactive bilaterally, negative for conjunctival pallor or scleral icterus, mucous membranes moist, TMs normal bilaterally, throat clear, neck supple, nontender, trachea midline. No drooling or trismus noted. No meningeal signs. No hot potato voice noted. Lungs: Clear to auscultation, breath sounds equal bilaterally, chest nontender. Heart: S1S2, regular rate and rhythm without overt murmur Abdomen: Soft, nondistended, nontender. Negative for masses or hepatosplenomegaly. Negative for costovertebral tenderness. Pelvis: Stable nontender. Genitourinary: Deferred. Rectal: Deferred. Skin: Intact, warm, dry. No lesions or rashes noted. Extremities: Atraumatic, negative for cords or calf pain. Neurovascular unremarkable. Neuro: Awake, alert, oriented. Cranial nerves II through XII unremarkable. Cer ebellum unremarkable. Motor and sensory unremarkable throughout. Exam nonfocal. Notes: Patient was seen in the ED on 01/06/2021 and received a thorough evaluation including cardiac evaluation, routine lab work, head CT w/o contrast and was discharged home with jonathanm and told to follow up with a primary care provider. Patient states that he has not followed up with a primary care provider and he is now out of the blood pressure medications he was given. Patient was able to ambulate into the ED today without difficulty, but does have recurring episodes of his dizziness where he is unable to walk without an unsteady gait. I did call and speak to the hospitalist on-call, Dr. Banks, and thoroughly discussed patients case and will admit to observation. Voices understanding and is agreeable to plan of care. Denies any further questions or concerns at this time. Diagnostics: EKG, CBC, CMP, UA, CXR, Trop, Head/Neck ANG CT Therapeutics: NS, Zofran, Meclizine Impression: Dizziness Plan: Admit to observation to Dr. Bnaks on telemetry Definitive disposition and diagnosis as appropriate pending reevaluation and review of above. - Related Data Allergies Allergy/AdvReac Type Severity Reaction Status Date / Time No Known Allergies Allergy Verified 01/18/21 19:20 Home Meds: Home Meds dilTIAZem HCL [Cardizem Cd] 180 mg PO DAILY #30 cap.er.24h 01/06/21 [Rx] Past Medical History HEENT History: Reports: None Cardiovascular History: Reports: Hypertension Respiratory History: Reports: None Gastrointestinal History: Reports: None Genitourinary History: Reports: None Musculoskeletal History: Reports: None Neurological History: Reports: None Psychiatric History: Reports: Anxiety Endocrine/Metabolic History: Reports: None Hematologic History: Reports: None Immunologic History: Reports: None Oncologic (Cancer) History: Reports: None Dermatologic History: Reports: None - Infectious Disease History Infectious Disease History: Reports: None - Past Surgical History Head Surgeries/Procedures: Reports: None HEENT Surgical History: Reports: None Cardiovascular Surgical History: Reports: None Respiratory Surgical History: Reports: None GI Surgical History: Reports: None Male Surgical History: Reports: None Endocrine Surgical History: Reports: None Neurological Surgical History: Reports: None Musculoskeletal Surgical History: Reports: None Oncologic Surgical History: Reports: None Social & Family History - Family History Family Medical History: No Pertinent Family History - Caffeine Use Caffeine Use: Reports: None ED ROS GENERAL - Review of Systems Review Of Systems: Comprehensive ROS is negative, except as noted in HPI. ED EXAM, GENERAL - Physical Exam Exam: See Below (see dictation) Course - Vital Signs Last Recorded V/S: Last Vital Signs Temp 97.3 F 01/18/21 19:18 Pulse 70 01/18/21 19:18 Resp 19 01/18/21 19:18 BP 149/100 H 01/18/21 19:18 Pulse Ox 100 01/18/21 19:18 Orthostatic Blood Pressure [ 214/107 Standing] Orthostatic Blood Pressure [ 195/104 Sitting] Orthostatic Blood Pressure [ 149/104 Supine] - Orders/Labs/Meds Orders: Active Orders 24 hr Category Date Time Status Cardiac Monitoring [RC] . DIRECTED Care 01/18/21 14:07 Active EKG Documentation Completion [RC] STAT Care 01/18/21 14:07 Active Orthostatic Vital Signs [RC] ASDIRECTED Care 01/18/21 14:52 Active Sodium Chloride 0.9% [Saline Flush] Med 01/18/21 14:07 Active 10 ml FLUSH ASDIRECTED PRN Sodium Chloride 0.9% [Saline Flush] Med 01/18/21 14:07 Active 2.5 ml FLUSH ASDIRECTED PRN Saline Lock Insert [OM.PC] Stat Oth 01/18/21 14:07 Ordered Medication Orders Acetaminophen (Tylenol) 650 mg PO Q4H PRN PRN Reason: Pain (Mild 1-3)/fever Aspirin (Aspirin) 81 mg PO BEDTIME MALIK Atorvastatin Calcium (Lipitor) 20 mg PO BEDTIME MALIK Diltiazem HCl (Cardizem Cd) 180 mg PO DAILY MALIK Enoxaparin Sodium (Lovenox) 40 mg SUBCUT Q24H MALIK Last Admin: 01/18/21 20:54 Dose: 40 mg Documented by: RHODA Labetalol HCl (Normodyne) 20 mg IVPUSH Q4H PRN; Protocol PRN Reason: Hypotension Sodium Chloride (Saline Flush) 2.5 ml FLUSH ASDIRECTED PRN PRN Reason: Keep Vein Open Last Admin: 01/18/21 14:10 Dose: 2.5 ml Documented by: YANI Sodium Chloride (Saline Flush) 10 ml FLUSH ASDIRECTED PRN PRN Reason: Keep Vein Open Last Admin: 01/18/21 14:10 Dose: 10 ml Documented by: [id number] Labs: Laboratory Tests 01/18/21 01/18/21 01/18/21 Range/Units 14:00 14:00 14:00 WBC 6.27 (4.0-11.0) K/uL RBC 5.39 (4.50-5.90) M/uL Hgb 14.2 (13.0-17.0) g/dL Hct 43.9 (38.0-50.0) % MCV 81.4 (80.0-98.0) fL MCH 26.3 L (27.0-32.0) pg MCHC 32.3 (31.0-37.0) g/dL RDW Std Deviation 40.9 (28.0-62.0) fl RDW Coeff of Lady 14 (11.0-15.0) % Plt Count 236 (150-400) K/uL MPV 10.60 (7.40-12.00) fL Neut % (Auto) 56.8 (48.0-80.0) % Lymph % (Auto) 37.6 (16.0-40.0) % Davis % (Auto) 4.5 (0.0-15.0) % Eos % (Auto) 0.8 (0.0-7.0) % Baso % (Auto) 0.3 (0.0-1.5) % Neut # (Auto) 3.6 (1.4-5.7) K/uL Lymph # (Auto) 2.4 (0.6-2.4) K/uL Davis # (Auto) 0.3 (0.0-0.8) K/uL Eos # (Auto) 0.1 (0.0-0.7) K/uL Baso # (Auto) 0.0 (0.0-0.1) K/uL Nucleated RBC % 0.0 /100WBC Nucleated RBCs # 0 K/uL Sodium 137 (136-148) mmol/L Potassium 4.0 (3.5-5.1) mmol/L Chloride 101 (98-107) mmol/L Carbon Dioxide 28.3 (21.0-32.0) mmol/L BUN 10 (7.0-18.0) mg/dL Creatinine 1.2 (0.8-1.3) mg/dL Est Cr Clr Drug Dosing 88.72 mL/min Estimated GFR (MDRD) > 60.0 ml/min Glucose 170 H (74-106) mg/dL Hemoglobin A1c (4.5 - 6.2) % Calcium 9.1 (8.5-10.1) mg/dL Total Bilirubin 0.4 (0.2-1.0) mg/dL AST 24 (15-37) IU/L ALT 52 (14-63) IU/L Alkaline Phosphatase 95 (46-116) U/L Troponin I < 0.050 (0.000-0.056) ng/mL Total Protein 7.9 (6.4-8.2) g/dL Albumin 3.8 (3.4-5.0) g/dL Globulin 4.1 H (2.6-4.0) g/dL Albumin/Globulin Ratio 0.9 (0.9-1.6) Triglycerides 104 (0-200) mg/dL Cholesterol 186 (50-200) mg/dL LDL Cholesterol, Calc 129 (60-180) mg/dL VLDL Cholesterol 20 (5-55) mg/dL HDL Cholesterol 36 L (40-60) mg/dL Cholesterol/HDL Ratio 5.2 (3.3-6.0) TSH 3rd Generation 0.40 (0.36-3.74) uIU/mL Urine Color Urine Appearance Urine pH (5.0-8.0) Ur Specific Seminary (1.001-1.035) Urine Protein (NEGATIVE) mg/dL Urine Glucose (UA) (NEGATIVE) mg/dL Urine Ketones (NEGATIVE) mg/dL Urine Occult Blood (NEGATIVE) Urine Nitrite (NEGATIVE) Urine Bilirubin (NEGATIVE) Urine Urobilinogen (<2.0) EU/dL Ur Leukocyte Esterase (NEGATIVE) Influenza Type A RNA (NEGATIVE) Influenza Type B RNA (NEGATIVE) SARS-CoV-2 RNA (LEANDER) (NEGATIVE) 01/18/21 01/18/21 01/18/21 Range/Units 14:00 15:54 17:25 WBC (4.0-11.0) K/uL RBC (4.50-5.90) M/uL Hgb (13.0-17.0) g/dL Hct (38.0-50.0) % MCV (80.0-98.0) fL MCH (27.0-32.0) pg MCHC (31.0-37.0) g/dL RDW Std Deviation (28.0-62.0) fl RDW Coeff of Lady (11.0-15.0) % Plt Count (150-400) K/uL MPV (7.40-12.00) fL Neut % (Auto) (48.0-80.0) % Lymph % (Auto) (16.0-40.0) % Davis % (Auto) (0.0-15.0) % Eos % (Auto) (0.0-7.0) % Baso % (Auto) (0.0-1.5) % Neut # (Auto) (1.4-5.7) K/uL Lymph # (Auto) (0.6-2.4) K/uL Davis # (Auto) (0.0-0.8) K/uL Eos # (Auto) (0.0-0.7) K/uL Baso # (Auto) (0.0-0.1) K/uL Nucleated RBC % /100WBC Nucleated RBCs # K/uL Sodium (136-148) mmol/L Potassium (3.5-5.1) mmol/L Chloride (98-107) mmol/L Carbon Dioxide (21.0-32.0) mmol/L BUN (7.0-18.0) mg/dL Creatinine (0.8-1.3) mg/dL Est Cr Clr Drug Dosing mL/min Estimated GFR (MDRD) ml/min Glucose (74-106) mg/dL Hemoglobin A1c 8.8 H (4.5 - 6.2) % Calcium (8.5-10.1) mg/dL Total Bilirubin (0.2-1.0) mg/dL AST (15-37) IU/L ALT (14-63) IU/L Alkaline Phosphatase (46-116) U/L Troponin I < 0.050 (0.000-0.056) ng/mL Total Protein (6.4-8.2) g/dL Albumin (3.4-5.0) g/dL Globulin (2.6-4.0) g/dL Albumin/Globulin Ratio (0.9-1.6) Triglycerides (0-200) mg/dL Cholesterol (50-200) mg/dL LDL Cholesterol, Calc (60-180) mg/dL VLDL Cholesterol (5-55) mg/dL HDL Cholesterol (40-60) mg/dL Cholesterol/HDL Ratio (3.3-6.0) TSH 3rd Generation (0.36-3.74) uIU/mL Urine Color YELLOW Urine Appearance CLEAR Urine pH 8.0 (5.0-8.0) Ur Specific Seminary 1.020 (1.001-1.035) Urine Protein NEGATIVE (NEGATIVE) mg/dL Urine Glucose (UA) NEGATIVE (NEGATIVE) mg/dL Urine Ketones NEGATIVE (NEGATIVE) mg/dL Urine Occult Blood NEGATIVE (NEGATIVE) Urine Nitrite NEGATIVE (NEGATIVE) Urine Bilirubin NEGATIVE (NEGATIVE) Urine Urobilinogen 0.2 (<2.0) EU/dL Ur Leukocyte Esterase NEGATIVE (NEGATIVE) Influenza Type A RNA (NEGATIVE) Influenza Type B RNA (NEGATIVE) SARS-CoV-2 RNA (LEANDER) (NEGATIVE) 01/18/21 Range/Units 17:53 WBC (4.0-11.0) K/uL RBC (4.50-5.90) M/uL Hgb (13.0-17.0) g/dL Hct (38.0-50.0) % MCV (80.0-98.0) fL MCH (27.0-32.0) pg MCHC (31.0-37.0) g/dL RDW Std Deviation (28.0-62.0) fl RDW Coeff of Lady (11.0-15.0) % Plt Count (150-400) K/uL MPV (7.40-12.00) fL Neut % (Auto) (48.0-80.0) % Lymph % (Auto) (16.0-40.0) % Davis % (Auto) (0.0-15.0) % Eos % (Auto) (0.0-7.0) % Baso % (Auto) (0.0-1.5) % Neut # (Auto) (1.4-5.7) K/uL Lymph # (Auto) (0.6-2.4) K/uL Davis # (Auto) (0.0-0.8) K/uL Eos # (Auto) (0.0-0.7) K/uL Baso # (Auto) (0.0-0.1) K/uL Nucleated RBC % /100WBC Nucleated RBCs # K/uL Sodium (136-148) mmol/L Potassium (3.5-5.1) mmol/L Chloride (98-107) mmol/L Carbon Dioxide (21.0-32.0) mmol/L BUN (7.0-18.0) mg/dL Creatinine (0.8-1.3) mg/dL Est Cr Clr Drug Dosing mL/min Estimated GFR (MDRD) ml/min Glucose (74-106) mg/dL Hemoglobin A1c (4.5 - 6.2) % Calcium (8.5-10.1) mg/dL Total Bilirubin (0.2-1.0) mg/dL AST (15-37) IU/L ALT (14-63) IU/L Alkaline Phosphatase (46-116) U/L Troponin I (0.000-0.056) ng/mL Total Protein (6.4-8.2) g/dL Albumin (3.4-5.0) g/dL Globulin (2.6-4.0) g/dL Albumin/Globulin Ratio (0.9-1.6) Triglycerides (0-200) mg/dL Cholesterol (50-200) mg/dL LDL Cholesterol, Calc (60-180) mg/dL VLDL Cholesterol (5-55) mg/dL HDL Cholesterol (40-60) mg/dL Cholesterol/HDL Ratio (3.3-6.0) TSH 3rd Generation (0.36-3.74) uIU/mL Urine Color Urine Appearance Urine pH (5.0-8.0) Ur Specific Seminary (1.001-1.035) Urine Protein (NEGATIVE) mg/dL Urine Glucose (UA) (NEGATIVE) mg/dL Urine Ketones (NEGATIVE) mg/dL Urine Occult Blood (NEGATIVE) Urine Nitrite (NEGATIVE) Urine Bilirubin (NEGATIVE) Urine Urobilinogen (<2.0) EU/dL Ur Leukocyte Esterase (NEGATIVE) Influenza Type A RNA NEGATIVE (NEGATIVE) Influenza Type B RNA NEGATIVE (NEGATIVE) SARS-CoV-2 RNA (LEANDER) NEGATIVE (NEGATIVE) Meds: Medications Generic Name Dose Route Start Last Admin Trade Name Freq PRN Reason Stop Dose Admin Acetaminophen 650 mg 01/18/21 19:56 Tylenol PO Q4H PRN Pain (Mild 1-3)/fever Aspirin 81 mg 01/18/21 21:00 Aspirin PO BEDTIME MALIK Atorvastatin Calcium 20 mg 01/18/21 21:00 Lipitor PO BEDTIME MALIK Diltiazem HCl 180 mg 01/18/21 21:00 Cardizem Cd PO DAILY MALIK Enoxaparin Sodium 40 mg 01/18/21 20:00 01/18/21 20:54 Lovenox SUBCUT 40 mg Q24H MALIK Administration Labetalol HCl 20 mg 01/18/21 20:47 Normodyne IVPUSH Q4H PRN Hypotension Protocol Sodium Chloride 2.5 ml 01/18/21 14:07 01/18/21 14:10 Saline Flush FLUSH 2.5 ml ASDIRECTED PRN Administration Keep Vein Open Sodium Chloride 10 ml 01/18/21 14:07 01/18/21 14:10 Saline Flush FLUSH 10 ml ASDIRECTED PRN Administration Keep Vein Open Discontinued Medications Generic Name Dose Route Start Last Admin Trade Name Jordonq PRN Reason Stop Dose Admin Sodium Chloride 1,000 mls @ 999 mls/hr 01/18/21 14:07 01/18/21 14:09 Normal Saline IV 01/18/21 15:07 999 mls/hr BOLUS ONE Administration Iopamidol 100 ml 01/18/21 16:43 01/18/21 19:18 Isovue Multipack-370 (76%) IVPUSH 01/18/21 16:44 100 ml ONETIME STA Administration Meclizine HCl 25 mg 01/18/21 15:57 01/18/21 16:07 Antivert PO 01/18/21 15:58 25 mg ONETIME ONE Administration Ondansetron HCl 4 mg 01/18/21 15:57 01/18/21 16:07 Zofran IVPUSH 01/18/21 15:58 4 mg ONETIME ONE Administration Ondansetron HCl 4 mg 01/18/21 16:38 01/18/21 17:59 Zofran IVPUSH 01/18/21 16:39 4 mg ONETIME ONE Administration Departure - Departure Time of Disposition: 22:32 Disposition: Refer to Observation Clinical Impression: Dizziness - Discharge Information Sepsis Event Note (ED) - Evaluation Sepsis Screening Result: No Definite Risk - Focused Exam Vital Signs: Vital Signs Temp Pulse Resp BP Pulse Ox 01/18/21 14:42 77 16 179/109 H 98 01/18/21 14:03 97.7 F 87 18 162/105 H 96 - My Orders Last 24 Hours: My Active Orders 01/18/21 14:07 Cardiac Monitoring [RC] . DIRECTED EKG Documentation Completion [RC] STAT Sodium Chloride 0.9% [Saline Flush] 10 ml FLUSH ASDIRECTED PRN Sodium Chloride 0.9% [Saline Flush] 2.5 ml FLUSH ASDIRECTED PRN Saline Lock Insert [OM.PC] Stat 01/18/21 14:52 Orthostatic Vital Signs [RC] ASDIRECTED - Assessment/Plan Last 24 Hours: My Active Orders 01/18/21 14:07 Cardiac Monitoring [RC] . DIRECTED EKG Documentation Completion [RC] STAT Sodium Chloride 0.9% [Saline Flush] 10 ml FLUSH ASDIRECTED PRN Sodium Chloride 0.9% [Saline Flush] 2.5 ml FLUSH ASDIRECTED PRN Saline Lock Insert [OM.PC] Stat 01/18/21 14:52 Orthostatic Vital Signs [RC] ASDIRECTED
--- NOTE | 2021-01-18 17:33 | CT ---
INDICATION: Dizziness. Loss of balance. COMPARISON: None. TECHNIQUE: CT angiogram of the neck. 3D reconstructed images. Isovue 370, 100 cc FINDINGS: Bilateral carotid artery circulations are patent from the origin to the skullbase. No focal stenosis. Patent bilateral vertebral circulations from the origin through the vertebrobasilar junction. No stenosis or dissection. Normal soft tissues of the neck. Normal alignment of the cervical spine. Mild cervical spondylosis. No prevertebral soft tissue swelling. Visualized paranasal sinuses and mastoid air cells are clear. Lung apices are clear. IMPRESSION: Normal CTA neck. Please note that all CT scans at this facility use dose modulation, iterative reconstruction, and/or weight-based dosing when appropriate to reduce radiation dose to as low as reasonably achievable. Dictated by Andrez De Dios MD @ Jan 18 2021 5:31PM Signed by Dr. Andrez De Dios @ Jan 18 2021 5:31PM
[2021-01-18 18:40] LABS: CORONAVIRUS COVID-19 NAA NEGATIVE (NEGATIVE); INFLUENZA A NAA NEGATIVE (NEGATIVE); INFLUENZA B NAA NEGATIVE (NEGATIVE)
[2021-01-18] MEDS ORDERED: Acetaminophen 325 MG Tab PO PRN (19:56)
[2021-01-18] MEDS ORDERED: Labetalol 100 MG/20 ML MDV IVPUSH PRN (20:47)
[2021-01-18] MEDS: Enoxaparin 40 MG/0.4 ML Syringe SUBCUT SCH (20:54)
--- NOTE | 2021-01-18 20:56 | PCM.HP.2 ---
<IleneNura - Last Filed: 01/18/21 21:53> H&P History of Present Illness - General Date of Service: 01/18/21 Admit Problem/Dx: Admission Diagnosis/Problem Admission Diagnosis/Problem Vertigo - History of Present Illness Initial Comments - Free Text/Narative: 35-year-old male with a recent diagnosis of hypertension, started on hydrochlorothiazide, amlodipine, Cardizem with questionable medical compliance, admitted for dizziness. Patient was also noted to have elevated systolic blood pressures ranging from [id number] in the ED. Patient presented to the ED roughly 2 weeks ago with similar symptoms. At this admission patient states that he has been having dizziness, left ear pain, "cloudy" vision and a spinning sensation. Patient denies any recent head trauma, accident, falls and denies any other past medical history. CBC, CMP within normal limits. CTA head, CTA neck normal findings. Chest x-ray normal. Patient is on labetalol 20 mg IV as needed for hypertension as well as resuming his Cardizem 180 mg daily - Related Data Allergies/Adverse Reactions: Allergies Allergy/AdvReac Type Severity Reaction Status Date / Time No Known Allergies Allergy Verified 01/18/21 19:20 Home Medications: Home Meds dilTIAZem HCL [Cardizem Cd] 180 mg PO DAILY #30 cap.er.24h 01/06/21 [Rx] Aspirin 81 mg PO BEDTIME 60 Days #60 tab.chew 01/20/21 [Rx] Cholecalciferol (Vitamin D3) [Vitamin D3] 2,000 unit PO DAILY 30 Days #30 capsule 01/20/21 [Rx] atorvaSTATin [Lipitor] 20 mg PO BEDTIME 14 Days #14 tablet 01/20/21 [Rx] hydroCHLOROthiazide [Hydrochlorothiazide] 12.5 mg PO DAILY 30 Days #30 tablet 01/20/21 [Rx] metFORMIN [Glucophage XR] 500 mg PO DAILY 30 Days #30 tab.er 01/20/21 [Rx] Past Medical History HEENT History: Reports: None Cardiovascular History: Reports: Hypertension Respiratory History: Reports: None Gastrointestinal History: Reports: None Genitourinary History: Reports: None Musculoskeletal History: Reports: None Neurological History: Reports: None Psychiatric History: Reports: Anxiety Endocrine/Metabolic History: Reports: None Hematologic History: Reports: None Immunologic History: Reports: None Oncologic (Cancer) History: Reports: None Dermatologic History: Reports: None - Infectious Disease History Infectious Disease History: Reports: None - Past Surgical History Head Surgeries/Procedures: Reports: None HEENT Surgical History: Reports: None Cardiovascular Surgical History: Reports: None Respiratory Surgical History: Reports: None GI Surgical History: Reports: None Male Surgical History: Reports: None Endocrine Surgical History: Reports: None Neurological Surgical History: Reports: None Musculoskeletal Surgical History: Reports: None Oncologic Surgical History: Reports: None Social & Family History - Family History Family Medical History: No Pertinent Family History - Caffeine Use Caffeine Use: Reports: None H&P Review of Systems - Review of Systems: Review Of Systems: See Below General: Denies: Fever, Chills HEENT: Reports: Ear Pain (left), Visual Changes (cloudy vision) Pulmonary: Denies: Shortness of Breath, Wheezing Cardiovascular: Denies: Chest Pain, Palpitations Gastrointestinal: Denies: Abdominal Pain Psychiatric: Denies: Confusion, Depression Exam - Exam Exam: See Below - Vital Signs Vital Signs: Last Vital Signs Temp 97.3 F 01/18/21 19:18 Pulse 70 01/18/21 19:18 Resp 19 01/18/21 19:18 BP 149/100 H 01/18/21 19:18 Pulse Ox 100 01/18/21 19:18 Orthostatic Blood Pressure [ 214/107 Standing] Orthostatic Blood Pressure [ 195/104 Sitting] Orthostatic Blood Pressure [ 149/104 Supine] Weight: 109.316 kg - Exam General: Alert, Oriented Lungs: Clear to Auscultation, Normal Respiratory Effort Cardiovascular: Regular Rate, Regular Rhythm Extremities: Normal Inspection - Patient Data Lab Results Last 24 hrs: Laboratory Results - last 24 hr 01/18/21 01/18/21 01/18/21 Range/Units 14:00 14:00 15:54 WBC 6.27 (4.0-11.0) K/uL RBC 5.39 (4.50-5.90) M/uL Hgb 14.2 (13.0-17.0) g/dL Hct 43.9 (38.0-50.0) % MCV 81.4 (80.0-98.0) fL MCH 26.3 L (27.0-32.0) pg MCHC 32.3 (31.0-37.0) g/dL RDW Std Deviation 40.9 (28.0-62.0) fl RDW Coeff of Lady 14 (11.0-15.0) % Plt Count 236 (150-400) K/uL MPV 10.60 (7.40-12.00) fL Neut % (Auto) 56.8 (48.0-80.0) % Lymph % (Auto) 37.6 (16.0-40.0) % [place] % (Auto) 4.5 (0.0-15.0) % Eos % (Auto) 0.8 (0.0-7.0) % Baso % (Auto) 0.3 (0.0-1.5) % Neut # (Auto) 3.6 (1.4-5.7) K/uL Lymph # (Auto) 2.4 (0.6-2.4) K/uL [place] # (Auto) 0.3 (0.0-0.8) K/uL Eos # (Auto) 0.1 (0.0-0.7) K/uL Baso # (Auto) 0.0 (0.0-0.1) K/uL Nucleated RBC % 0.0 /100WBC Nucleated RBCs # 0 K/uL Sodium 137 (136-148) mmol/L Potassium 4.0 (3.5-5.1) mmol/L Chloride 101 (98-107) mmol/L Carbon Dioxide 28.3 (21.0-32.0) mmol/L BUN 10 (7.0-18.0) mg/dL Creatinine 1.2 (0.8-1.3) mg/dL Est Cr Clr Drug Dosing 88.72 mL/min Estimated GFR (MDRD) > 60.0 ml/min Glucose 170 H (74-106) mg/dL Calcium 9.1 (8.5-10.1) mg/dL Total Bilirubin 0.4 (0.2-1.0) mg/dL AST 24 (15-37) IU/L ALT 52 (14-63) IU/L Alkaline Phosphatase 95 (46-116) U/L Troponin I < 0.050 (0.000-0.056) ng/mL Total Protein 7.9 (6.4-8.2) g/dL Albumin 3.8 (3.4-5.0) g/dL Globulin 4.1 H (2.6-4.0) g/dL Albumin/Globulin Ratio 0.9 (0.9-1.6) Urine Color YELLOW Urine Appearance CLEAR Urine pH 8.0 (5.0-8.0) Ur Specific [place] 1.020 (1.001-1.035) Urine Protein NEGATIVE (NEGATIVE) mg/dL Urine Glucose (UA) NEGATIVE (NEGATIVE) mg/dL Urine Ketones NEGATIVE (NEGATIVE) mg/dL Urine Occult Blood NEGATIVE (NEGATIVE) Urine Nitrite NEGATIVE (NEGATIVE) Urine Bilirubin NEGATIVE (NEGATIVE) Urine Urobilinogen 0.2 (<2.0) EU/dL Ur Leukocyte Esterase NEGATIVE (NEGATIVE) Influenza Type A RNA (NEGATIVE) Influenza Type B RNA (NEGATIVE) SARS-CoV-2 RNA (LEANDER) (NEGATIVE) 01/18/21 01/18/21 Range/Units 17:25 17:53 WBC (4.0-11.0) K/uL RBC (4.50-5.90) M/uL Hgb (13.0-17.0) g/dL Hct (38.0-50.0) % MCV (80.0-98.0) fL MCH (27.0-32.0) pg MCHC (31.0-37.0) g/dL RDW Std Deviation (28.0-62.0) fl RDW Coeff of Lady (11.0-15.0) % Plt Count (150-400) K/uL MPV (7.40-12.00) fL Neut % (Auto) (48.0-80.0) % Lymph % (Auto) (16.0-40.0) % [place] % (Auto) (0.0-15.0) % Eos % (Auto) (0.0-7.0) % Baso % (Auto) (0.0-1.5) % Neut # (Auto) (1.4-5.7) K/uL Lymph # (Auto) (0.6-2.4) K/uL [place] # (Auto) (0.0-0.8) K/uL Eos # (Auto) (0.0-0.7) K/uL Baso # (Auto) (0.0-0.1) K/uL Nucleated RBC % /100WBC Nucleated RBCs # K/uL Sodium (136-148) mmol/L Potassium (3.5-5.1) mmol/L Chloride (98-107) mmol/L Carbon Dioxide (21.0-32.0) mmol/L BUN (7.0-18.0) mg/dL Creatinine (0.8-1.3) mg/dL Est Cr Clr Drug Dosing mL/min Estimated GFR (MDRD) ml/min Glucose (74-106) mg/dL Calcium (8.5-10.1) mg/dL Total Bilirubin (0.2-1.0) mg/dL AST (15-37) IU/L ALT (14-63) IU/L Alkaline Phosphatase (46-116) U/L Troponin I < 0.050 (0.000-0.056) ng/mL Total Protein (6.4-8.2) g/dL Albumin (3.4-5.0) g/dL Globulin (2.6-4.0) g/dL Albumin/Globulin Ratio (0.9-1.6) Urine Color Urine Appearance Urine pH (5.0-8.0) Ur Specific [place] (1.001-1.035) Urine Protein (NEGATIVE) mg/dL Urine Glucose (UA) (NEGATIVE) mg/dL Urine Ketones (NEGATIVE) mg/dL Urine Occult Blood (NEGATIVE) Urine Nitrite (NEGATIVE) Urine Bilirubin (NEGATIVE) Urine Urobilinogen (<2.0) EU/dL Ur Leukocyte Esterase (NEGATIVE) Influenza Type A RNA NEGATIVE (NEGATIVE) Influenza Type B RNA NEGATIVE (NEGATIVE) SARS-CoV-2 RNA (LEANDER) NEGATIVE (NEGATIVE) Result Diagrams: 01/18/21 14:00 01/18/21 14:00 Sepsis Event Note - Evaluation Sepsis Screening Result: No Definite Risk - Focused Exam Vital Signs: Vital Signs Temp Pulse Resp BP Pulse Ox 01/18/21 19:18 97.3 F 70 19 149/100 H 100 01/18/21 18:57 71 16 188/113 H 98 01/18/21 18:00 97.8 F 81 16 170/94 H 100 01/18/21 14:42 77 16 179/109 H 98 01/18/21 14:03 97.7 F 87 18 162/105 H 96 - Problem List (1) Dizziness SNOMED Code(s): 067950019, 409869085 ICD Code: R42 - DIZZINESS AND GIDDINESS Status: Acute (2) History of hypertension SNOMED Code(s): 263163056 ICD Code: Z86.79 - PERSONAL HISTORY OF OTHER DISEASES OF THE CIRCULATORY SYSTEM Status: Acute (4) Hyperglycemia SNOMED Code(s): 89980244 ICD Code: R73.9 - HYPERGLYCEMIA, UNSPECIFIED Status: Acute Problem List Initiated/Reviewed/Updated: Yes Orders Last 24hrs: Active Orders 24 hr Category Date Time Status Admission Status [Patient Status] [ADT] Stat ADT 01/18/21 17:55 Active Cardiac Monitoring [RC] . DIRECTED Care 01/18/21 14:07 Active EKG Documentation Completion [RC] STAT Care 01/18/21 14:07 Active Orthostatic Vital Signs [RC] ASDIRECTED Care 01/18/21 14:52 Active Oxygen Therapy [RC] PRN Care 01/18/21 19:56 Active Telemetry Monitoring [Cardiac Monitoring] [RC] Q8H Care 01/18/21 18:07 Active Up With Assistance [RC] ASDIRECTED Care 01/18/21 19:56 Active VTE/DVT Education [RC] PER UNIT ROUTINE Care 01/18/21 19:56 Active Vital Signs [RC] Q4H Care 01/18/21 19:56 Active Heart Healthy Diet [DIET] Diet 01/18/21 Dinner Active Brain w wo Cont [MR] Routine Exams 01/18/21 20:46 Ordered Echo Comp wo Cont [US] Routine Exams 01/18/21 20:54 Ordered CBC WITH AUTO DIFF [HEME] AM Lab 01/19/21 05:11 Ordered GLYCOSYLATED HEMOGLOBIN,HGBA1C [CHEM] Routine Lab 01/18/21 20:53 Ordered LIPID PANEL [CHEM] Routine Lab 01/18/21 20:53 Ordered TSH [CHEM] Routine Lab 01/18/21 20:53 Ordered Acetaminophen [TylenoL] Med 01/18/21 19:56 Active 650 mg PO Q4H PRN Aspirin Med 01/18/21 21:00 Ordered 81 mg PO BEDTIME Diltiazem [Cardizem CD] Med 01/18/21 21:00 Ordered 180 mg PO DAILY Enoxaparin [Lovenox] Med 01/18/21 20:00 Active 40 mg SUBCUT Q24H Labetalol [Normodyne] Med 01/18/21 20:47 Ordered 20 mg IVPUSH Q4H PRN Sodium Chloride 0.9% [Saline Flush] Med 01/18/21 14:07 Active 10 ml FLUSH ASDIRECTED PRN Sodium Chloride 0.9% [Saline Flush] Med 01/18/21 14:07 Active 2.5 ml FLUSH ASDIRECTED PRN atorvaSTATin [Lipitor] Med 01/18/21 21:00 Ordered 20 mg PO BEDTIME Saline Lock Insert [OM.PC] Stat Oth 01/18/21 14:07 Ordered Medication Orders Acetaminophen (Tylenol) 650 mg PO Q4H PRN PRN Reason: Pain (Mild 1-3)/fever Aspirin (Aspirin) 81 mg PO BEDTIME MALIK Atorvastatin Calcium (Lipitor) 20 mg PO BEDTIME MALIK Diltiazem HCl (Cardizem Cd) 180 mg PO DAILY MALIK Enoxaparin Sodium (Lovenox) 40 mg SUBCUT Q24H MALIK Last Admin: 01/18/21 20:54 Dose: 40 mg Documented by: RHODA Labetalol HCl (Normodyne) 20 mg IVPUSH Q4H PRN; Protocol PRN Reason: Hypotension Sodium Chloride (Saline Flush) 2.5 ml FLUSH ASDIRECTED PRN PRN Reason: Keep Vein Open Last Admin: 01/18/21 14:10 Dose: 2.5 ml Documented by: [email or web address] Sodium Chloride (Saline Flush) 10 ml FLUSH ASDIRECTED PRN PRN Reason: Keep Vein Open Last Admin: 01/18/21 14:10 Dose: 10 ml Documented by: [id number] Assessment/Plan Comment:: [place] order MR brain with and without contrast, 2D echo, resume anti- hypertensive medications, monitor electrolytes. Hypertension-labetalol 20 mg IV push as needed, Cardizem 180 mg daily Diabeteshemoglobin A1c 8.8, start diabetic diet. Will start sliding scale insulin after monitoring glucose levels with meals. <Eduardo Banks - Last Filed: 01/20/21 13:12> H&P History of Present Illness - General Admit Problem/Dx: Admission Diagnosis/Problem Admission Diagnosis/Problem Vertigo Exam - Vital Signs Vital Signs: Last Vital Signs Temp 36.6 C 01/20/21 07:15 Pulse 69 01/20/21 07:15 Resp 14 01/20/21 07:15 BP 148/94 H 01/20/21 07:15 Pulse Ox 96 01/20/21 07:15 Orthostatic Blood Pressure [ 214/107 Standing] Orthostatic Blood Pressure [ 195/104 Sitting] Orthostatic Blood Pressure [ 149/104 Supine] - Patient Data Lab Results Last 24 hrs: Laboratory Results - last 24 hr 01/19/21 01/20/21 01/20/21 Range/Units 16:55 05:05 05:05 WBC 5.89 (4.0-11.0) K/uL RBC 5.30 (4.50-5.90) M/uL Hgb 13.7 (13.0-17.0) g/dL Hct 43.2 (38.0-50.0) % MCV 81.5 (80.0-98.0) fL MCH 25.8 L (27.0-32.0) pg MCHC 31.7 (31.0-37.0) g/dL RDW Std Deviation 41.0 (28.0-62.0) fl RDW Coeff of Lady 14 (11.0-15.0) % Plt Count 232 (150-400) K/uL MPV 10.40 (7.40-12.00) fL Neut % (Auto) 44.0 L (48.0-80.0) % Lymph % (Auto) 47.4 H (16.0-40.0) % [place] % (Auto) 7.1 (0.0-15.0) % Eos % (Auto) 1.2 (0.0-7.0) % Baso % (Auto) 0.3 (0.0-1.5) % Neut # (Auto) 2.6 (1.4-5.7) K/uL Lymph # (Auto) 2.8 H (0.6-2.4) K/uL [place] # (Auto) 0.4 (0.0-0.8) K/uL Eos # (Auto) 0.1 (0.0-0.7) K/uL Baso # (Auto) 0.0 (0.0-0.1) K/uL Nucleated RBC % 0.0 /100WBC Nucleated RBCs # 0 K/uL Sodium 137 (136-148) mmol/L Potassium 3.9 (3.5-5.1) mmol/L Chloride 101 (98-107) mmol/L Carbon Dioxide 29.9 (21.0-32.0) mmol/L BUN 15 (7.0-18.0) mg/dL Creatinine 1.4 H (0.8-1.3) mg/dL Est Cr Clr Drug Dosing 76.04 mL/min Estimated GFR (MDRD) > 60.0 ml/min Glucose 140 H (74-106) mg/dL POC Glucose 213 H (60-110) mg/dL Calcium 9.0 (8.5-10.1) mg/dL Magnesium 1.9 (1.8-2.4) mg/dL Total Bilirubin 0.5 (0.2-1.0) mg/dL AST 21 (15-37) IU/L ALT 45 (14-63) IU/L Alkaline Phosphatase 89 (46-116) U/L Total Protein 7.5 (6.4-8.2) g/dL Albumin 3.5 (3.4-5.0) g/dL Globulin 4.0 (2.6-4.0) g/dL Albumin/Globulin Ratio 0.9 (0.9-1.6) Vitamin D 25-Hydroxy 13.1 L (30.0-100.0) ng/mL 01/20/21 Range/Units 06:20 WBC (4.0-11.0) K/uL RBC (4.50-5.90) M/uL Hgb (13.0-17.0) g/dL Hct (38.0-50.0) % MCV (80.0-98.0) fL MCH (27.0-32.0) pg MCHC (31.0-37.0) g/dL RDW Std Deviation (28.0-62.0) fl RDW Coeff of Lady (11.0-15.0) % Plt Count (150-400) K/uL MPV (7.40-12.00) fL Neut % (Auto) (48.0-80.0) % Lymph % (Auto) (16.0-40.0) % [place] % (Auto) (0.0-15.0) % Eos % (Auto) (0.0-7.0) % Baso % (Auto) (0.0-1.5) % Neut # (Auto) (1.4-5.7) K/uL Lymph # (Auto) (0.6-2.4) K/uL [place] # (Auto) (0.0-0.8) K/uL Eos # (Auto) (0.0-0.7) K/uL Baso # (Auto) (0.0-0.1) K/uL Nucleated RBC % /100WBC Nucleated RBCs # K/uL Sodium (136-148) mmol/L Potassium (3.5-5.1) mmol/L Chloride (98-107) mmol/L Carbon Dioxide (21.0-32.0) mmol/L BUN (7.0-18.0) mg/dL Creatinine (0.8-1.3) mg/dL Est Cr Clr Drug Dosing mL/min Estimated GFR (MDRD) ml/min Glucose (74-106) mg/dL POC Glucose 167 H (60-110) mg/dL Calcium (8.5-10.1) mg/dL Magnesium (1.8-2.4) mg/dL Total Bilirubin (0.2-1.0) mg/dL AST (15-37) IU/L ALT (14-63) IU/L Alkaline Phosphatase (46-116) U/L Total Protein (6.4-8.2) g/dL Albumin (3.4-5.0) g/dL Globulin (2.6-4.0) g/dL Albumin/Globulin Ratio (0.9-1.6) Vitamin D 25-Hydroxy (30.0-100.0) ng/mL Result Diagrams: 01/20/21 05:05 01/20/21 05:05 Sepsis Event Note - Focused Exam Vital Signs: Vital Signs Temp Pulse Resp BP Pulse Ox 01/20/21 07:15 36.6 C 69 14 148/94 H 96 01/20/21 05:00 36.8 C 71 14 144/73 H 97 - Problem List (1) Diabetes mellitus SNOMED Code(s): 44819054 ICD Code: E11.9 - TYPE 2 DIABETES MELLITUS WITHOUT COMPLICATIONS Status: Acute Qualifiers: Diabetes mellitus type: type 2 Diabetes mellitus assistant terminal manager insulin use: without assistant terminal manager use (2) Dizziness SNOMED Code(s): 095145790, 815303523 ICD Code: R42 - DIZZINESS AND GIDDINESS Status: Acute (3) History of hypertension SNOMED Code(s): 472232626 ICD Code: Z86.79 - PERSONAL HISTORY OF OTHER DISEASES OF THE CIRCULATORY SYSTEM Status: Acute (4) Vertigo SNOMED Code(s): 415230598 ICD Code: R42 - DIZZINESS AND GIDDINESS Status: Acute Orders Last 24hrs: Active Orders 24 hr Category Date Time Status Consult to Curriculum Assistant Principal [Consult to Diabetic Nurse Cons 01/19/21 12:18 Active Specialist] [CONS] Routine Consult to Physician [CONS] Routine Cons 01/19/21 12:16 Active Echo Comp wo Cont [US] Routine Exams 01/19/21 20:54 Taken Medication Orders Acetaminophen (Tylenol) 650 mg PO Q4H PRN PRN Reason: Pain (Mild 1-3)/fever Aspirin (Aspirin) 81 mg PO BEDTIME [facility] Last Admin: 01/19/21 20:49 Dose: 81 mg Documented by: Admin: 01/18/21 22:28 Dose: 81 mg Documented by: RHODA Atorvastatin Calcium (Lipitor) 20 mg PO BEDTIME [facility] Last Admin: 01/19/21 20:49 Dose: 20 mg Documented by: Admin: 01/18/21 22:28 Dose: 20 mg Documented by: RHODA Dextrose/Water (50% Dextrose In Water 50 Ml Syringe) 50 ml IV ASDIRECTED PRN PRN Reason: Hypoglycemia Diltiazem HCl (Diltiazem 180 Mg Cap.Cd) 180 mg PO DAILY [facility] Last Admin: 01/20/21 08:41 Dose: 180 mg Documented by: Admin: 01/19/21 09:00 Dose: 180 mg Documented by: ELIZABETH Cosigned by: SHREE Admin: 01/18/21 22:29 Dose: Not Given Documented by: RHODA Enoxaparin Sodium (Lovenox) 40 mg SUBCUT Q24H [facility] Last Admin: 01/19/21 19:41 Dose: 40 mg Documented by: Admin: 01/18/21 20:54 Dose: 40 mg Documented by: RHODA Glucagon (Glucagon,Human Recombinant 1 Mg Vial) 1 mg IM ASDIRECTED PRN PRN Reason: Hypoglycemia Insulin Aspart (Insulin Aspart 100 Units/Ml 3 Ml Pen) 0 unit SUBCUT TIDAC MALIK; Protocol Last Admin: 01/20/21 08:40 Dose: 1 unit Documented by: Admin: 01/19/21 16:58 Dose: 2 unit Documented by: Admin: 01/19/21 12:08 Dose: 1 unit Documented by: SASHA Labetalol HCl (Normodyne) 20 mg IVPUSH Q4H PRN; Protocol PRN Reason: Hypotension Ondansetron HCl (Ondansetron 4 Mg/2 Ml Sdv) 4 mg IVPUSH Q4H PRN PRN Reason: Nausea Last Admin: 01/19/21 11:28 Dose: 4 mg Documented by: ELIZABETH Cosigned by: SHREE Sodium Chloride (Saline Flush) 2.5 ml FLUSH ASDIRECTED PRN PRN Reason: Keep Vein Open Last Admin: 01/18/21 14:10 Dose: 2.5 ml Documented by: YANI Sodium Chloride (Saline Flush) 10 ml FLUSH ASDIRECTED PRN PRN Reason: Keep Vein Open Last Admin: 01/18/21 14:10 Dose: 10 ml Documented by: YANI Assessment/Plan Comment:: I performed a history and physical exam of the patient and discussed management with resident. I have reviewed the residents note and agree with documented findings and plan unless otherwise specified in my note.'
[2021-01-18 21:07] LABS: HEMOGLOBIN A1C 8.8 %
[2021-01-18] MEDS: atorvaSTATin 20 MG Tab PO SCH (22:28)
[2021-01-18] MEDS: Aspirin 81 MG Tab.Chew PO SCH (22:28)
[2021-01-18] MEDS: Diltiazem 180 MG Cap.CD PO SCH (22:29)
[2021-01-19 07:22] LABS: BLOOD UREA NITROGEN,BUN 11 mg/dL (7.0-18.0); CARBON DIOXIDE,CO2 26.4 mmol/L (21.0-32.0); CHLORIDE,CL 103 mmol/L (98-107); GLUCOSE RANDOM 153 mg/dL (74-106); POTASSIUM,K 4.1 mmol/L (3.5-5.1); SODIUM,NA 138 mmol/L (136-148)
[2021-01-19] MEDS ORDERED: Gadobenate Dimeglumine 529 MG/ML 20 ML SDV IVPUSH STA (07:37)
[2021-01-19] MEDS ORDERED: Glucagon,Human Recombinant 1 MG Vial IM PRN (08:20)
[2021-01-19] MEDS ORDERED: 50% Dextrose in Water 50 ML Syringe IV PRN (08:20)
[2021-01-19] MEDS: Diltiazem 180 MG Cap.CD PO SCH (09:00)
--- NOTE | 2021-01-19 09:01 | MR ---
INDICATION: Dizziness. Uncontrolled hypertension. TECHNIQUE: Sagittal T1 axial FLAIR T2 susceptibility weighted diffusion-weighted and gadolinium enhanced volumetric T1 weighted sequences. COMPARISON: CT and CTA exam 01/18/2021. Prior CT brain 11/12/2019. FINDINGS: The ventricles normal in size and configuration. Multiple focal areas of FLAIR/T2 signal hyperintensity are noted within the bilateral supratentorial white matter, anterior corpus callosum, basal ganglia and maki. There are associated areas of cavitation within the bilateral cerebral white matter and maki likely the result of chronic lacunar infarcts. A small focus of FLAIR/T2 hyperintensity and probable diffusion restriction within the left inferior cerebellar peduncle/pontomedullary junction without enhancement suggests recent lacunar infarct. Additional tiny areas of increased signal on DWI trace sequence within the posterior left carroll radiata and posterior limb internal capsule on images 16 and 19 of series 804 suggests subacute lacunar infarcts. There are several small areas of susceptibility signal within the brainstem maki medulla and in the left periatrial/parietal lobe white matter consistent with degraded blood products as can be seen associated with chronic hypertension. Differential diagnosis would include small cavernous malformations. No evidence of recent hemorrhage. No mass effect or shift of midline structures. IMPRESSION: 1. Multifocal signal abnormalities within supratentorial white matter, basal ganglia and brain stem consistent with chronic small vessel ischemic disease and lacunar infarcts. 2. Foci within the left pontomedullary junction/left inferior cerebellar peduncle and left internal capsule are likely subacute lacunae. 3. Small foci of susceptibility effect consistent with chronic degraded blood products in the brainstem and left parietal lobe white matter as can be seen in patients with chronic hypertension, coagulopathy, vasculitis. Small cavernous malformations could be considered. 4. No evidence of acute intracranial hemorrhage or mass effect. Dictated by Ritesh Starks MD @ Jan 19 2021 8:43AM Signed by Dr. Ritesh Starks @ Jan 19 2021 8:59AM
[2021-01-19] MEDS ORDERED: Ondansetron 4 MG/2 ML SDV IVPUSH PRN (11:15)
[2021-01-19] MEDS: Insulin Aspart 100 Units/ML 3 ML Pen SUBCUT SCH ×2 (12:08→16:58)
--- NOTE | 2021-01-19 16:56 | PCM.CONS ---
H&P History of Present Illness - General Date of Service: 01/19/21 Admit Problem/Dx: Admission Diagnosis/Problem Admission Diagnosis/Problem Vertigo - History of Present Illness Initial Comments - Free Text/Narative: 35 year old man with history of HTN, new diagnosed DM admitted with dizziness vertigo. He was in ED on 01/06/2021 with dizziness / room spinning. He noted that it lasted about 6 hours. Yesterday, morning, he woke up with the same dizziness that has improved but it has not resolved. He endorses spinning with walking and turning over in bed. He endorses left ear pain. No diplopia, headache, numbness, weakness. MRI brain showed confluent areas of white matter hyperintensity in the white matter and brainstem consistent with small vessel ischemic change. There is faint change of DWI at left pontomedullary junction, which suggests subacute changes. No ADC changes. CTA head and neck was normal LDL 129 Hgb A1c 8.8 Utox 01/06/2021 negative Echo pending - Related Data Allergies/Adverse Reactions: Allergies Allergy/AdvReac Type Severity Reaction Status Date / Time No Known Allergies Allergy Verified 01/18/21 19:20 Home Medications: Home Meds dilTIAZem HCL [Cardizem Cd] 180 mg PO DAILY #30 cap.er.24h 01/06/21 [Rx] Past Medical History HEENT History: Reports: None Cardiovascular History: Reports: Hypertension Respiratory History: Reports: None Gastrointestinal History: Reports: None Genitourinary History: Reports: None Musculoskeletal History: Reports: None Neurological History: Reports: None Psychiatric History: Reports: Anxiety Endocrine/Metabolic History: Reports: None Hematologic History: Reports: None Immunologic History: Reports: None Oncologic (Cancer) History: Reports: None Dermatologic History: Reports: None - Infectious Disease History Infectious Disease History: Reports: None - Past Surgical History Head Surgeries/Procedures: Reports: None HEENT Surgical History: Reports: None Cardiovascular Surgical History: Reports: None Respiratory Surgical History: Reports: None GI Surgical History: Reports: None Male Surgical History: Reports: None Endocrine Surgical History: Reports: None Neurological Surgical History: Reports: None Musculoskeletal Surgical History: Reports: None Oncologic Surgical History: Reports: None Social & Family History - Family History Family Medical History: No Pertinent Family History - Tobacco Use Tobacco Use Status *Q: Light Tobacco User Years of Tobacco use: 1 Packs/Tins Daily: 0.1 Used Tobacco, but Quit: Yes Month/Year Tobacco Last Used: Dec 2020 Second Hand Smoke Exposure: No - Caffeine Use Caffeine Use: Reports: None - Recreational Drug Use Recreational Drug Use: No H&P Review of Systems - Review of Systems: Review Of Systems: See Below General: Reports: No Symptoms Cardiovascular: Reports: No Symptoms Gastrointestinal: Reports: No Symptoms Genitourinary: Reports: No Symptoms Neurological: Reports: Dizziness, Gait Disturbance Exam - Exam Exam: See Below - Vital Signs Vital Signs: Last Vital Signs Temp 36.8 C 01/19/21 15:27 Pulse 77 01/19/21 15:27 Resp 16 01/19/21 15:27 BP 152/86 H 01/19/21 15:27 Pulse Ox 97 01/19/21 15:27 Orthostatic Blood Pressure [ 214/107 Standing] Orthostatic Blood Pressure [ 195/104 Sitting] Orthostatic Blood Pressure [ 149/104 Supine] Weight: 109.316 kg - Exam Physical Exam Comments:: MS: Normal language, good historian CN: Left beating nystagmus with left gaze, impaired left VOR. Motor: normal tone and power Sensory: intact to temp FTN intact Gait slightly wide based, negative Romberg: - Patient Data Lab Results Last 24 hrs: Laboratory Results - last 24 hr 01/18/21 01/18/21 01/18/21 Range/Units 14:00 14:00 17:25 WBC (4.0-11.0) K/uL RBC (4.50-5.90) M/uL Hgb (13.0-17.0) g/dL Hct (38.0-50.0) % MCV (80.0-98.0) fL MCH (27.0-32.0) pg MCHC (31.0-37.0) g/dL RDW Std Deviation (28.0-62.0) fl RDW Coeff of Lady (11.0-15.0) % Plt Count (150-400) K/uL MPV (7.40-12.00) fL Neut % (Auto) (48.0-80.0) % Lymph % (Auto) (16.0-40.0) % Wells % (Auto) (0.0-15.0) % Eos % (Auto) (0.0-7.0) % Baso % (Auto) (0.0-1.5) % Neut # (Auto) (1.4-5.7) K/uL Lymph # (Auto) (0.6-2.4) K/uL Wells # (Auto) (0.0-0.8) K/uL Eos # (Auto) (0.0-0.7) K/uL Baso # (Auto) (0.0-0.1) K/uL Nucleated RBC % /100WBC Nucleated RBCs # K/uL Sodium (136-148) mmol/L Potassium (3.5-5.1) mmol/L Chloride (98-107) mmol/L Carbon Dioxide (21.0-32.0) mmol/L BUN (7.0-18.0) mg/dL Creatinine (0.8-1.3) mg/dL Est Cr Clr Drug Dosing mL/min Estimated GFR (MDRD) ml/min Glucose (74-106) mg/dL POC Glucose (60-110) mg/dL Hemoglobin A1c 8.8 H (4.5 - 6.2) % Calcium (8.5-10.1) mg/dL Troponin I < 0.050 (0.000-0.056) ng/mL Triglycerides 104 (0-200) mg/dL Cholesterol 186 (50-200) mg/dL LDL Cholesterol, Calc 129 (60-180) mg/dL VLDL Cholesterol 20 (5-55) mg/dL HDL Cholesterol 36 L (40-60) mg/dL Cholesterol/HDL Ratio 5.2 (3.3-6.0) TSH 3rd Generation 0.40 (0.36-3.74) uIU/mL Influenza Type A RNA (NEGATIVE) Influenza Type B RNA (NEGATIVE) SARS-CoV-2 RNA (LEANDER) (NEGATIVE) 01/18/21 01/19/21 01/19/21 Range/Units 17:53 05:23 05:23 WBC 5.62 (4.0-11.0) K/uL RBC 5.26 (4.50-5.90) M/uL Hgb 13.8 (13.0-17.0) g/dL Hct 42.8 (38.0-50.0) % MCV 81.4 (80.0-98.0) fL MCH 26.2 L (27.0-32.0) pg MCHC 32.2 (31.0-37.0) g/dL RDW Std Deviation 41.1 (28.0-62.0) fl RDW Coeff of Lady 14 (11.0-15.0) % Plt Count 226 (150-400) K/uL MPV 10.80 (7.40-12.00) fL Neut % (Auto) 46.1 L (48.0-80.0) % Lymph % (Auto) 43.8 H (16.0-40.0) % Wells % (Auto) 8.2 (0.0-15.0) % Eos % (Auto) 1.2 (0.0-7.0) % Baso % (Auto) 0.7 (0.0-1.5) % Neut # (Auto) 2.6 (1.4-5.7) K/uL Lymph # (Auto) 2.5 H (0.6-2.4) K/uL Wells # (Auto) 0.5 (0.0-0.8) K/uL Eos # (Auto) 0.1 (0.0-0.7) K/uL Baso # (Auto) 0.0 (0.0-0.1) K/uL Nucleated RBC % 0.0 /100WBC Nucleated RBCs # 0 K/uL Sodium 138 (136-148) mmol/L Potassium 4.1 (3.5-5.1) mmol/L Chloride 103 (98-107) mmol/L Carbon Dioxide 26.4 (21.0-32.0) mmol/L BUN 11 (7.0-18.0) mg/dL Creatinine 1.2 (0.8-1.3) mg/dL Est Cr Clr Drug Dosing 88.72 mL/min Estimated GFR (MDRD) > 60.0 ml/min Glucose 153 H (74-106) mg/dL POC Glucose (60-110) mg/dL Hemoglobin A1c (4.5 - 6.2) % Calcium 8.9 (8.5-10.1) mg/dL Troponin I (0.000-0.056) ng/mL Triglycerides (0-200) mg/dL Cholesterol (50-200) mg/dL LDL Cholesterol, Calc (60-180) mg/dL VLDL Cholesterol (5-55) mg/dL HDL Cholesterol (40-60) mg/dL Cholesterol/HDL Ratio (3.3-6.0) TSH 3rd Generation (0.36-3.74) uIU/mL Influenza Type A RNA NEGATIVE (NEGATIVE) Influenza Type B RNA NEGATIVE (NEGATIVE) SARS-CoV-2 RNA (LEANDER) NEGATIVE (NEGATIVE) 01/19/21 Range/Units 11:51 WBC (4.0-11.0) K/uL RBC (4.50-5.90) M/uL Hgb (13.0-17.0) g/dL Hct (38.0-50.0) % MCV (80.0-98.0) fL MCH (27.0-32.0) pg MCHC (31.0-37.0) g/dL RDW Std Deviation (28.0-62.0) fl RDW Coeff of Lady (11.0-15.0) % Plt Count (150-400) K/uL MPV (7.40-12.00) fL Neut % (Auto) (48.0-80.0) % Lymph % (Auto) (16.0-40.0) % Wells % (Auto) (0.0-15.0) % Eos % (Auto) (0.0-7.0) % Baso % (Auto) (0.0-1.5) % Neut # (Auto) (1.4-5.7) K/uL Lymph # (Auto) (0.6-2.4) K/uL Wells # (Auto) (0.0-0.8) K/uL Eos # (Auto) (0.0-0.7) K/uL Baso # (Auto) (0.0-0.1) K/uL Nucleated RBC % /100WBC Nucleated RBCs # K/uL Sodium (136-148) mmol/L Potassium (3.5-5.1) mmol/L Chloride (98-107) mmol/L Carbon Dioxide (21.0-32.0) mmol/L BUN (7.0-18.0) mg/dL Creatinine (0.8-1.3) mg/dL Est Cr Clr Drug Dosing mL/min Estimated GFR (MDRD) ml/min Glucose (74-106) mg/dL POC Glucose 180 H (60-110) mg/dL Hemoglobin A1c (4.5 - 6.2) % Calcium (8.5-10.1) mg/dL Troponin I (0.000-0.056) ng/mL Triglycerides (0-200) mg/dL Cholesterol (50-200) mg/dL LDL Cholesterol, Calc (60-180) mg/dL VLDL Cholesterol (5-55) mg/dL HDL Cholesterol (40-60) mg/dL Cholesterol/HDL Ratio (3.3-6.0) TSH 3rd Generation (0.36-3.74) uIU/mL Influenza Type A RNA (NEGATIVE) Influenza Type B RNA (NEGATIVE) SARS-CoV-2 RNA (LEANDER) (NEGATIVE) Result Diagrams: 01/19/21 05:23 01/19/21 05:23 Sepsis Event Note - Evaluation Sepsis Screening Result: No Definite Risk - Focused Exam Vital Signs: Vital Signs Temp Pulse Resp BP Pulse Ox 01/19/21 15:27 36.8 C 77 16 152/86 H 97 01/19/21 11:44 36.9 C 74 14 141/93 H 96 01/19/21 09:14 36.3 C 67 14 151/94 H 94 L Consult PN Assessment/Plan Procedures: Procedures ASSAY OF LIPASE (01/06/21) ASSAY OF TROPONIN QUANT (01/06/21) COMPLETE CBC W/AUTO DIFF WBC (01/06/21) COMPREHEN METABOLIC PANEL (01/06/21) CT HEAD/BRAIN W/O DYE (01/06/21) DRUG ASSAY SALICYLATE (01/06/21) DRUG TEST PRSMV DIR OPT OBS (01/06/21) ELECTROCARDIOGRAM TRACING (01/06/21) EMERGENCY DEPT VISIT (01/06/21) EMERGENCY DEPT VISIT (03/21/19) EMERGENCY DEPT VISIT (05/12/14) GLUCOSE BLOOD TEST (01/06/21) METABOLIC PANEL TOTAL CA (10/07/19) ROUTINE VENIPUNCTURE (01/06/21) THER/PROPH/DIAG INJ IV PUSH (01/06/21) THER/PROPH/DIAG INJ SC/IM (03/21/19) URINALYSIS AUTO W/O SCOPE (03/21/19) URINALYSIS AUTO W/SCOPE (01/06/21) X-RAY EXAM L-S SPINE 2/3 VWS (03/21/19) (1) Vertigo SNOMED Code(s): 411342706 Code(s): R42 - DIZZINESS AND GIDDINESS Current Visit: Yes Assessment:: Vertigo: Examination suggestive of peripheral localization, but this could be seen with small brainstem infarct involving the 8th nerve. MRI indicates extensive white matter and brainstem change consistent with small vessel disease. He is quite young, but he also has untreated HTN (BP 10/07/2019 was 188/124) and now discovery of DM -Echo pending -Agree with statin, ASA -The areas of ischemia on MRI appear weeks old, so reasonable to treat HTN -PT eval Problem List Initiated/Reviewed/Updated: Yes
--- NOTE | 2021-01-19 18:17 | PCM.PN ---
- General Info Date of Service: 01/19/21 Subjective Update: Patient states he still has bouts of dizziness and blurry vision but has improved since admission. Patient denies chest pain, shortness of breath, headaches, fever, chills. Patient does state that he gets nauseous at times. - Review of Systems General: Denies: Fever, Fatigue, Chills Pulmonary: Denies: Shortness of Breath, Cough Cardiovascular: Denies: Chest Pain Gastrointestinal: Reports: Nausea. Denies: Abdominal Pain Neurological: Reports: Dizziness. Denies: Headache Psychiatric: Denies: Confusion - Patient Data Vitals - Most Recent: Last Vital Signs Temp 98.3 F 01/19/21 15:27 Pulse 77 01/19/21 15:27 Resp 16 01/19/21 15:27 BP 152/86 H 01/19/21 15:27 Pulse Ox 97 01/19/21 15:27 Orthostatic Blood Pressure [ 214/107 Standing] Orthostatic Blood Pressure [ 195/104 Sitting] Orthostatic Blood Pressure [ 149/104 Supine] Weight - Most Recent: 241 lb Lab Results Last 24 Hours: Laboratory Results - last 24 hr 01/18/21 01/18/21 01/18/21 Range/Units 14:00 14:00 17:25 WBC (4.0-11.0) K/uL RBC (4.50-5.90) M/uL Hgb (13.0-17.0) g/dL Hct (38.0-50.0) % MCV (80.0-98.0) fL MCH (27.0-32.0) pg MCHC (31.0-37.0) g/dL RDW Std Deviation (28.0-62.0) fl RDW Coeff of Lady (11.0-15.0) % Plt Count (150-400) K/uL MPV (7.40-12.00) fL Neut % (Auto) (48.0-80.0) % Lymph % (Auto) (16.0-40.0) % Glades % (Auto) (0.0-15.0) % Eos % (Auto) (0.0-7.0) % Baso % (Auto) (0.0-1.5) % Neut # (Auto) (1.4-5.7) K/uL Lymph # (Auto) (0.6-2.4) K/uL Glades # (Auto) (0.0-0.8) K/uL Eos # (Auto) (0.0-0.7) K/uL Baso # (Auto) (0.0-0.1) K/uL Nucleated RBC % /100WBC Nucleated RBCs # K/uL Sodium (136-148) mmol/L Potassium (3.5-5.1) mmol/L Chloride (98-107) mmol/L Carbon Dioxide (21.0-32.0) mmol/L BUN (7.0-18.0) mg/dL Creatinine (0.8-1.3) mg/dL Est Cr Clr Drug Dosing mL/min Estimated GFR (MDRD) ml/min Glucose (74-106) mg/dL POC Glucose (60-110) mg/dL Hemoglobin A1c 8.8 H (4.5 - 6.2) % Calcium (8.5-10.1) mg/dL Troponin I < 0.050 (0.000-0.056) ng/mL Triglycerides 104 (0-200) mg/dL Cholesterol 186 (50-200) mg/dL LDL Cholesterol, Calc 129 (60-180) mg/dL VLDL Cholesterol 20 (5-55) mg/dL HDL Cholesterol 36 L (40-60) mg/dL Cholesterol/HDL Ratio 5.2 (3.3-6.0) TSH 3rd Generation 0.40 (0.36-3.74) uIU/mL Influenza Type A RNA (NEGATIVE) Influenza Type B RNA (NEGATIVE) SARS-CoV-2 RNA (LEANDER) (NEGATIVE) 01/18/21 01/19/21 01/19/21 Range/Units 17:53 05:23 05:23 WBC 5.62 (4.0-11.0) K/uL RBC 5.26 (4.50-5.90) M/uL Hgb 13.8 (13.0-17.0) g/dL Hct 42.8 (38.0-50.0) % MCV 81.4 (80.0-98.0) fL MCH 26.2 L (27.0-32.0) pg MCHC 32.2 (31.0-37.0) g/dL RDW Std Deviation 41.1 (28.0-62.0) fl RDW Coeff of Lady 14 (11.0-15.0) % Plt Count 226 (150-400) K/uL MPV 10.80 (7.40-12.00) fL Neut % (Auto) 46.1 L (48.0-80.0) % Lymph % (Auto) 43.8 H (16.0-40.0) % Glades % (Auto) 8.2 (0.0-15.0) % Eos % (Auto) 1.2 (0.0-7.0) % Baso % (Auto) 0.7 (0.0-1.5) % Neut # (Auto) 2.6 (1.4-5.7) K/uL Lymph # (Auto) 2.5 H (0.6-2.4) K/uL Glades # (Auto) 0.5 (0.0-0.8) K/uL Eos # (Auto) 0.1 (0.0-0.7) K/uL Baso # (Auto) 0.0 (0.0-0.1) K/uL Nucleated RBC % 0.0 /100WBC Nucleated RBCs # 0 K/uL Sodium 138 (136-148) mmol/L Potassium 4.1 (3.5-5.1) mmol/L Chloride 103 (98-107) mmol/L Carbon Dioxide 26.4 (21.0-32.0) mmol/L BUN 11 (7.0-18.0) mg/dL Creatinine 1.2 (0.8-1.3) mg/dL Est Cr Clr Drug Dosing 88.72 mL/min Estimated GFR (MDRD) > 60.0 ml/min Glucose 153 H (74-106) mg/dL POC Glucose (60-110) mg/dL Hemoglobin A1c (4.5 - 6.2) % Calcium 8.9 (8.5-10.1) mg/dL Troponin I (0.000-0.056) ng/mL Triglycerides (0-200) mg/dL Cholesterol (50-200) mg/dL LDL Cholesterol, Calc (60-180) mg/dL VLDL Cholesterol (5-55) mg/dL HDL Cholesterol (40-60) mg/dL Cholesterol/HDL Ratio (3.3-6.0) TSH 3rd Generation (0.36-3.74) uIU/mL Influenza Type A RNA NEGATIVE (NEGATIVE) Influenza Type B RNA NEGATIVE (NEGATIVE) SARS-CoV-2 RNA (LEANDER) NEGATIVE (NEGATIVE) 01/19/21 01/19/21 Range/Units 11:51 16:55 WBC (4.0-11.0) K/uL RBC (4.50-5.90) M/uL Hgb (13.0-17.0) g/dL Hct (38.0-50.0) % MCV (80.0-98.0) fL MCH (27.0-32.0) pg MCHC (31.0-37.0) g/dL RDW Std Deviation (28.0-62.0) fl RDW Coeff of Lady (11.0-15.0) % Plt Count (150-400) K/uL MPV (7.40-12.00) fL Neut % (Auto) (48.0-80.0) % Lymph % (Auto) (16.0-40.0) % Glades % (Auto) (0.0-15.0) % Eos % (Auto) (0.0-7.0) % Baso % (Auto) (0.0-1.5) % Neut # (Auto) (1.4-5.7) K/uL Lymph # (Auto) (0.6-2.4) K/uL Glades # (Auto) (0.0-0.8) K/uL Eos # (Auto) (0.0-0.7) K/uL Baso # (Auto) (0.0-0.1) K/uL Nucleated RBC % /100WBC Nucleated RBCs # K/uL Sodium (136-148) mmol/L Potassium (3.5-5.1) mmol/L Chloride (98-107) mmol/L Carbon Dioxide (21.0-32.0) mmol/L BUN (7.0-18.0) mg/dL Creatinine (0.8-1.3) mg/dL Est Cr Clr Drug Dosing mL/min Estimated GFR (MDRD) ml/min Glucose (74-106) mg/dL POC Glucose 180 H 213 H (60-110) mg/dL Hemoglobin A1c (4.5 - 6.2) % Calcium (8.5-10.1) mg/dL Troponin I (0.000-0.056) ng/mL Triglycerides (0-200) mg/dL Cholesterol (50-200) mg/dL LDL Cholesterol, Calc (60-180) mg/dL VLDL Cholesterol (5-55) mg/dL HDL Cholesterol (40-60) mg/dL Cholesterol/HDL Ratio (3.3-6.0) TSH 3rd Generation (0.36-3.74) uIU/mL Influenza Type A RNA (NEGATIVE) Influenza Type B RNA (NEGATIVE) SARS-CoV-2 RNA (LEANDER) (NEGATIVE) Med Orders - Current: Current Medications Acetaminophen (Tylenol) 650 mg PO Q4H PRN PRN Reason: Pain (Mild 1-3)/fever Aspirin (Aspirin) 81 mg PO BEDTIME [facility] Last Admin: 01/18/21 22:28 Dose: 81 mg Documented by: Atorvastatin Calcium (Lipitor) 20 mg PO BEDTIME [facility]IK Last Admin: 01/18/21 22:28 Dose: 20 mg Documented by: Diltiazem HCl (Cardizem Cd) 180 mg PO DAILY [facility] Last Admin: 01/19/21 09:00 Dose: 180 mg Documented by: Enoxaparin Sodium (Lovenox) 40 mg SUBCUT Q24H MALIK Last Admin: 01/18/21 20:54 Dose: 40 mg Documented by: Labetalol HCl (Normodyne) 20 mg IVPUSH Q4H PRN; Protocol PRN Reason: Hypotension Sodium Chloride (Saline Flush) 2.5 ml FLUSH ASDIRECTED PRN PRN Reason: Keep Vein Open Last Admin: 01/18/21 14:10 Dose: 2.5 ml Documented by: Sodium Chloride (Saline Flush) 10 ml FLUSH ASDIRECTED PRN PRN Reason: Keep Vein Open Last Admin: 01/18/21 14:10 Dose: 10 ml Documented by: Discontinued Medications Gadobenate Dimeglumine (Gadobenate Dimeglumine 529 Mg/Ml 20 Ml Sdv) 20 ml IVPUSH ONETIME STA Stop: 01/19/21 07:38 Last Admin: 01/19/21 08:05 Dose: 20 ml Documented by: Sodium Chloride (Normal Saline) 1,000 mls @ 999 mls/hr IV BOLUS ONE Stop: 01/18/21 15:07 Last Admin: 01/18/21 14:09 Dose: 999 mls/hr Documented by: Iopamidol (Isovue Multipack-370 (76%)) 100 ml IVPUSH ONETIME STA Stop: 01/18/21 16:44 Last Admin: 01/18/21 19:18 Dose: 100 ml Documented by: Meclizine HCl (Antivert) 25 mg PO ONETIME ONE Stop: 01/18/21 15:58 Last Admin: 01/18/21 16:07 Dose: 25 mg Documented by: Ondansetron HCl (Zofran) 4 mg IVPUSH ONETIME ONE Stop: 01/18/21 15:58 Last Admin: 01/18/21 16:07 Dose: 4 mg Documented by: Ondansetron HCl (Zofran) 4 mg IVPUSH ONETIME ONE Stop: 01/18/21 16:39 Last Admin: 01/18/21 17:59 Dose: 4 mg Documented by: - Exam General: Alert, Oriented HEENT: Pupils Reactive Lungs: Clear to Auscultation, Normal Respiratory Effort Cardiovascular: Regular Rate, Regular Rhythm GI/Abdominal Exam: Normal Bowel Sounds Extremities: No Pedal Edema Neurological: Normal Speech Psy/Mental Status: Alert - Patient Data Lab Results Last 24 hrs: Laboratory Results - last 24 hr 01/18/21 01/18/21 01/18/21 Range/Units 14:00 14:00 17:25 WBC (4.0-11.0) K/uL RBC (4.50-5.90) M/uL Hgb (13.0-17.0) g/dL Hct (38.0-50.0) % MCV (80.0-98.0) fL MCH (27.0-32.0) pg MCHC (31.0-37.0) g/dL RDW Std Deviation (28.0-62.0) fl RDW Coeff of Lady (11.0-15.0) % Plt Count (150-400) K/uL MPV (7.40-12.00) fL Neut % (Auto) (48.0-80.0) % Lymph % (Auto) (16.0-40.0) % Glades % (Auto) (0.0-15.0) % Eos % (Auto) (0.0-7.0) % Baso % (Auto) (0.0-1.5) % Neut # (Auto) (1.4-5.7) K/uL Lymph # (Auto) (0.6-2.4) K/uL Glades # (Auto) (0.0-0.8) K/uL Eos # (Auto) (0.0-0.7) K/uL Baso # (Auto) (0.0-0.1) K/uL Nucleated RBC % /100WBC Nucleated RBCs # K/uL Sodium (136-148) mmol/L Potassium (3.5-5.1) mmol/L Chloride (98-107) mmol/L Carbon Dioxide (21.0-32.0) mmol/L BUN (7.0-18.0) mg/dL Creatinine (0.8-1.3) mg/dL Est Cr Clr Drug Dosing mL/min Estimated GFR (MDRD) ml/min Glucose (74-106) mg/dL POC Glucose (60-110) mg/dL Hemoglobin A1c 8.8 H (4.5 - 6.2) % Calcium (8.5-10.1) mg/dL Troponin I < 0.050 (0.000-0.056) ng/mL Triglycerides 104 (0-200) mg/dL Cholesterol 186 (50-200) mg/dL LDL Cholesterol, Calc 129 (60-180) mg/dL VLDL Cholesterol 20 (5-55) mg/dL HDL Cholesterol 36 L (40-60) mg/dL Cholesterol/HDL Ratio 5.2 (3.3-6.0) TSH 3rd Generation 0.40 (0.36-3.74) uIU/mL Influenza Type A RNA (NEGATIVE) Influenza Type B RNA (NEGATIVE) SARS-CoV-2 RNA (LEANDER) (NEGATIVE) 01/18/21 01/19/21 01/19/21 Range/Units 17:53 05:23 05:23 WBC 5.62 (4.0-11.0) K/uL RBC 5.26 (4.50-5.90) M/uL Hgb 13.8 (13.0-17.0) g/dL Hct 42.8 (38.0-50.0) % MCV 81.4 (80.0-98.0) fL MCH 26.2 L (27.0-32.0) pg MCHC 32.2 (31.0-37.0) g/dL RDW Std Deviation 41.1 (28.0-62.0) fl RDW Coeff of Lady 14 (11.0-15.0) % Plt Count 226 (150-400) K/uL MPV 10.80 (7.40-12.00) fL Neut % (Auto) 46.1 L (48.0-80.0) % Lymph % (Auto) 43.8 H (16.0-40.0) % Glades % (Auto) 8.2 (0.0-15.0) % Eos % (Auto) 1.2 (0.0-7.0) % Baso % (Auto) 0.7 (0.0-1.5) % Neut # (Auto) 2.6 (1.4-5.7) K/uL Lymph # (Auto) 2.5 H (0.6-2.4) K/uL Glades # (Auto) 0.5 (0.0-0.8) K/uL Eos # (Auto) 0.1 (0.0-0.7) K/uL Baso # (Auto) 0.0 (0.0-0.1) K/uL Nucleated RBC % 0.0 /100WBC Nucleated RBCs # 0 K/uL Sodium 138 (136-148) mmol/L Potassium 4.1 (3.5-5.1) mmol/L Chloride 103 (98-107) mmol/L Carbon Dioxide 26.4 (21.0-32.0) mmol/L BUN 11 (7.0-18.0) mg/dL Creatinine 1.2 (0.8-1.3) mg/dL Est Cr Clr Drug Dosing 88.72 mL/min Estimated GFR (MDRD) > 60.0 ml/min Glucose 153 H (74-106) mg/dL POC Glucose (60-110) mg/dL Hemoglobin A1c (4.5 - 6.2) % Calcium 8.9 (8.5-10.1) mg/dL Troponin I (0.000-0.056) ng/mL Triglycerides (0-200) mg/dL Cholesterol (50-200) mg/dL LDL Cholesterol, Calc (60-180) mg/dL VLDL Cholesterol (5-55) mg/dL HDL Cholesterol (40-60) mg/dL Cholesterol/HDL Ratio (3.3-6.0) TSH 3rd Generation (0.36-3.74) uIU/mL Influenza Type A RNA NEGATIVE (NEGATIVE) Influenza Type B RNA NEGATIVE (NEGATIVE) SARS-CoV-2 RNA (LEANDER) NEGATIVE (NEGATIVE) 01/19/21 01/19/21 Range/Units 11:51 16:55 WBC (4.0-11.0) K/uL RBC (4.50-5.90) M/uL Hgb (13.0-17.0) g/dL Hct (38.0-50.0) % MCV (80.0-98.0) fL MCH (27.0-32.0) pg MCHC (31.0-37.0) g/dL RDW Std Deviation (28.0-62.0) fl RDW Coeff of Lady (11.0-15.0) % Plt Count (150-400) K/uL MPV (7.40-12.00) fL Neut % (Auto) (48.0-80.0) % Lymph % (Auto) (16.0-40.0) % Glades % (Auto) (0.0-15.0) % Eos % (Auto) (0.0-7.0) % Baso % (Auto) (0.0-1.5) % Neut # (Auto) (1.4-5.7) K/uL Lymph # (Auto) (0.6-2.4) K/uL Glades # (Auto) (0.0-0.8) K/uL Eos # (Auto) (0.0-0.7) K/uL Baso # (Auto) (0.0-0.1) K/uL Nucleated RBC % /100WBC Nucleated RBCs # K/uL Sodium (136-148) mmol/L Potassium (3.5-5.1) mmol/L Chloride (98-107) mmol/L Carbon Dioxide (21.0-32.0) mmol/L BUN (7.0-18.0) mg/dL Creatinine (0.8-1.3) mg/dL Est Cr Clr Drug Dosing mL/min Estimated GFR (MDRD) ml/min Glucose (74-106) mg/dL POC Glucose 180 H 213 H (60-110) mg/dL Hemoglobin A1c (4.5 - 6.2) % Calcium (8.5-10.1) mg/dL Troponin I (0.000-0.056) ng/mL Triglycerides (0-200) mg/dL Cholesterol (50-200) mg/dL LDL Cholesterol, Calc (60-180) mg/dL VLDL Cholesterol (5-55) mg/dL HDL Cholesterol (40-60) mg/dL Cholesterol/HDL Ratio (3.3-6.0) TSH 3rd Generation (0.36-3.74) uIU/mL Influenza Type A RNA (NEGATIVE) Influenza Type B RNA (NEGATIVE) SARS-CoV-2 RNA (LEANDER) (NEGATIVE) Result Diagrams: 01/19/21 05:23 01/19/21 05:23 Sepsis Event Note - Evaluation Sepsis Screening Result: No Definite Risk - Focused Exam Vital Signs: Vital Signs Temp Pulse Resp BP Pulse Ox 01/19/21 15:27 98.3 F 77 16 152/86 H 97 01/19/21 11:44 98.4 F 74 14 141/93 H 96 01/19/21 09:14 97.4 F 67 14 151/94 H 94 L - Problem List & Annotations (1) Dizziness SNOMED Code(s): 783983034, 858246347 Code(s): R42 - DIZZINESS AND GIDDINESS Status: Acute Current Visit: Yes (2) History of hypertension SNOMED Code(s): 237888243 Code(s): Z86.79 - PERSONAL HISTORY OF OTHER DISEASES OF THE CIRCULATORY SYSTEM Status: Acute Current Visit: Yes (3) Diabetes mellitus SNOMED Code(s): 89308211 Code(s): E11.9 - TYPE 2 DIABETES MELLITUS WITHOUT COMPLICATIONS Status: Acute Current Visit: Yes Qualifiers: Diabetes mellitus type: type 2 Diabetes mellitus terminal carman insulin use: without terminal carman use - Problem List Review Problem List Initiated/Reviewed/Updated: Yes - My Orders Last 24 Hours: My Active Orders 01/18/21 19:56 Oxygen Therapy [RC] PRN Up With Assistance [RC] ASDIRECTED VTE/DVT Education [RC] PER UNIT ROUTINE Vital Signs [RC] Q4H Acetaminophen [TylenoL] 650 mg PO Q4H PRN 01/18/21 20:00 Enoxaparin [Lovenox] 40 mg SUBCUT Q24H 01/18/21 21:56 Code Status [Resuscitation Status] Routine 01/19/21 Breakfast [employer] Diet [DIET] 01/19/21 08:20 Dextrose 50% in Water 50 ml IV ASDIRECTED PRN Glucagon,Human Recombinant [GlucaGen] 1 mg IM ASDIRECTED PRN 01/19/21 11:27 PT Evaluation and Treatment [CONS] Routine 01/19/21 11:30 Insulin Aspart [NovoLOG] See Protocol SUBCUT TIDAC 01/19/21 12:16 Consult to Physician [CONS] Routine 01/19/21 12:17 Notify Provider Consults [RC] ASDIRECTED 01/19/21 12:18 Consult to Geospatial Program Management Officer [Consult to Diabetic Nurse Specialist] [CONS] Routine - Plan Plan:: Dizzinesspatient was seen by Dr. Johnson, recommendation made to continue aspirin, statin therapy, treat hypertension. Echo still pending. Continue antihypertensive medications. Patient was seen by physical therapy, recommendation was to use a cane for assistance. PT also recommended ENT referral for left ear pain. Hypertension-labetalol 20 mg IV push as needed, Cardizem 180 mg daily Diabeteshemoglobin A1c 8.8, start diabetic diet. Sliding scale insulin low-dose, referral to music educator.
[2021-01-19] MEDS: Enoxaparin 40 MG/0.4 ML Syringe SUBCUT SCH (19:41)
[2021-01-19] MEDS: Aspirin 81 MG Tab.Chew PO SCH (20:49)
[2021-01-19] MEDS: atorvaSTATin 20 MG Tab PO SCH (20:49)
[2021-01-19] MEDS ORDERED: Hydrochlorothiazide 25 MG Tab PO SCH (21:00)
[2021-01-20 05:56] LABS: BLOOD UREA NITROGEN,BUN 15 mg/dL (7.0-18.0); CARBON DIOXIDE,CO2 29.9 mmol/L (21.0-32.0); CHLORIDE,CL 101 mmol/L (98-107); GLUCOSE RANDOM 140 mg/dL (74-106); POTASSIUM,K 3.9 mmol/L (3.5-5.1); SODIUM,NA 137 mmol/L (136-148)
[2021-01-20] MEDS: Insulin Aspart 100 Units/ML 3 ML Pen SUBCUT SCH (08:40)
[2021-01-20] MEDS: Diltiazem 180 MG Cap.CD PO SCH (08:41)
--- NOTE | 2021-01-20 09:08 | PCM.DCSUM1 ---
<Nura Jose - Last Filed: 01/20/21 11:57> Discharge Summary - Hospital Course Free Text/Narrative:: 35-year-old male with a recent diagnosis of hypertension, and per records was started on hydrochlorothiazide, amlodipine, Cardizem with questionable medical compliance, admitted for dizziness. 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 He was not aware that he had to start hydrochlorothiazide and the amlodipine. Documentation from previous ER visit states that amlodipine and hydrochlorothiazide were recorded as history. Patient was also noted to have elevated systolic blood pressures ranging from [id number] in the ED. Patient presented to the ED roughly 2 weeks ago with similar symptoms. At this admission patient states that he has been having dizziness, left ear pain, "cloudy" vision and a spinning sensation. Patient denies any recent head trauma, accident, falls and denies any other past medical history. On admission CBC, CMP within normal limits. CTA head, CTA neck normal findings. Chest x-ray normal. 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 Small foci with chronic degraded blood products in brainstem left parietal lobe seen in patients with chronic hypertension, vasculitis. No evidence of acute intracranial hemorrhage or mass-effect. Dr. Johnson from neurology consulted, her recommendations were to continue continue aspirin, statin therapy, treat hypertension and diabetes as patients MRI findings consistent with small vessel damage secondary to HTN and diabetes. Patient was seen by physical therapy, recommendation was to use a cane for assistance. PT also recommended ENT referral for left ear pain but the patient denies left ear pain upon discharge. operating system designer also spoke with the patient recommended dietary changes with initiating Metformin. Patient discharged home on hydrochlorothiazide 12.5 mg daily, resume home medication of Cardizem 180 mg daily, atorvastatin 20 mg daily, aspirin 81 mg daily, Metformin 500 mg daily with meals, vitamin D3 2000 IU. Patient to follow-up with Dr. Jose in clinic medications to be adjusted as needed. Patient understands and verbally acknowledges medication directions. - Discharge Data Discharge Date: 01/20/21 Discharge Disposition: Home, Self-Care 01 Condition: Good - Referral to Home Health Primary Care Physician: Blair Wheatley MD - Discharge Diagnosis/Problem(s) (1) Dizziness SNOMED Code(s): 043684338, 177659093 ICD Code: R42 - DIZZINESS AND GIDDINESS Status: Acute (2) History of hypertension SNOMED Code(s): 159681314 ICD Code: Z86.79 - PERSONAL HISTORY OF OTHER DISEASES OF THE CIRCULATORY SYSTEM Status: Acute (3) Diabetes mellitus SNOMED Code(s): 97454876 ICD Code: E11.9 - TYPE 2 DIABETES MELLITUS WITHOUT COMPLICATIONS Status: Acute Qualifiers: Diabetes mellitus type: type 2 Diabetes mellitus extermination inspector insulin use: without usp use - Patient Summary/Data Consults: Consultations 01/19/21 11:27 PT Evaluation and Treatment [CONS] Routine 01/19/21 12:16 Consult to Physician [CONS] Routine 01/19/21 12:18 Consult to Coupler [Consult to Diabetic Nurse Specialist] [CONS] Routine - Patient Instructions Diet: Diabetic Diet Activity: As Tolerated Driving: Do Not Drive Showering/Bathing: May Shower Notify Provider of: Fever, Increased Pain, Swelling and Redness, Nausea and/or Vomiting - Discharge Plan *PRESCRIPTION DRUG MONITORING PROGRAM REVIEWED*: No *COPY OF PRESCRIPTION DRUG MONITORING REPORT IN PATIENT REHANA: No Prescriptions/Med Rec: Aspirin 81 mg PO BEDTIME 60 Days #60 tab.chew metFORMIN [Glucophage XR] 500 mg PO DAILY 30 Days #30 tab.er hydroCHLOROthiazide [Hydrochlorothiazide] 12.5 mg PO DAILY 30 Days #30 tablet atorvaSTATin [Lipitor] 20 mg PO BEDTIME 14 Days #14 tablet Cholecalciferol (Vitamin D3) [Vitamin D3] 2,000 unit PO DAILY 30 Days #30 capsule Home Medications: Home Meds dilTIAZem HCL [Cardizem Cd] 180 mg PO DAILY #30 cap.er.24h 01/06/21 [Rx] Aspirin 81 mg PO BEDTIME 60 Days #60 tab.chew 01/20/21 [Rx] Cholecalciferol (Vitamin D3) [Vitamin D3] 2,000 unit PO DAILY 30 Days #30 capsule 01/20/21 [Rx] atorvaSTATin [Lipitor] 20 mg PO BEDTIME 14 Days #14 tablet 01/20/21 [Rx] hydroCHLOROthiazide [Hydrochlorothiazide] 12.5 mg PO DAILY 30 Days #30 tablet 01/20/21 [Rx] metFORMIN [Glucophage XR] 500 mg PO DAILY 30 Days #30 tab.er 03/10/21 [Rx] Patient Handouts: Calcium; Vitamin D oral tablets, Metformin extended-release tablets, Vertigo, [id number], Atorvastatin tablets, Aspirin, ASA oral tablets, Dizziness, Hypertension, Adult, Hydrochlorothiazide, HCTZ Oral Capsules or Tablets Forms: ED Department Discharge Referrals: Nura Jose MD [Resident] - 02/02/21 2:00 pm - Discharge Summary/Plan Comment DC Time >30 min.: Yes - General Info Date of Service: 01/20/21 Subjective Update: Patient states that he feels good today, denies dizziness, denies left ear pain, denies chest pain, shortness of breath, headaches, nausea, vomiting, lightheadedness. Patient states that he is ready to go home. - Review of Systems General: Denies: Fever, Chills Pulmonary: Denies: Shortness of Breath Cardiovascular: Denies: Chest Pain, Palpitations Gastrointestinal: Denies: Abdominal Pain, Vomiting Neurological: Denies: Dizziness, Headache, Difficulty Walking Psychiatric: Denies: Confusion - Patient Data Vitals - Most Recent: Last Vital Signs Temp 97.8 F 01/20/21 07:15 Pulse 69 01/20/21 07:15 Resp 14 01/20/21 07:15 BP 148/94 H 01/20/21 07:15 Pulse Ox 96 01/20/21 07:15 Orthostatic Blood Pressure [ 214/107 Standing] Orthostatic Blood Pressure [ 195/104 Sitting] Orthostatic Blood Pressure [ 149/104 Supine] Weight - Most Recent: 109.316 kg I&O - Last 24 hours: Intake & Output 01/19/21 01/20/21 01/20/21 22:59 06:59 14:59 Intake Total 450 Output Total 600 Balance -150 Lab Results - Last 24 hrs: Laboratory Results - last 24 hr 01/19/21 01/19/21 01/20/21 Range/Units 11:51 16:55 05:05 WBC 5.89 (4.0-11.0) K/uL RBC 5.30 (4.50-5.90) M/uL Hgb 13.7 (13.0-17.0) g/dL Hct 43.2 (38.0-50.0) % MCV 81.5 (80.0-98.0) fL MCH 25.8 L (27.0-32.0) pg MCHC 31.7 (31.0-37.0) g/dL RDW Std Deviation 41.0 (28.0-62.0) fl RDW Coeff of Lady 14 (11.0-15.0) % Plt Count 232 (150-400) K/uL MPV 10.40 (7.40-12.00) fL Neut % (Auto) 44.0 L (48.0-80.0) % Lymph % (Auto) 47.4 H (16.0-40.0) % Long % (Auto) 7.1 (0.0-15.0) % Eos % (Auto) 1.2 (0.0-7.0) % Baso % (Auto) 0.3 (0.0-1.5) % Neut # (Auto) 2.6 (1.4-5.7) K/uL Lymph # (Auto) 2.8 H (0.6-2.4) K/uL Long # (Auto) 0.4 (0.0-0.8) K/uL Eos # (Auto) 0.1 (0.0-0.7) K/uL Baso # (Auto) 0.0 (0.0-0.1) K/uL Nucleated RBC % 0.0 /100WBC Nucleated RBCs # 0 K/uL Sodium (136-148) mmol/L Potassium (3.5-5.1) mmol/L Chloride (98-107) mmol/L Carbon Dioxide (21.0-32.0) mmol/L BUN (7.0-18.0) mg/dL Creatinine (0.8-1.3) mg/dL Est Cr Clr Drug Dosing mL/min Estimated GFR (MDRD) ml/min Glucose (74-106) mg/dL POC Glucose 180 H 213 H (60-110) mg/dL Calcium (8.5-10.1) mg/dL Magnesium (1.8-2.4) mg/dL Total Bilirubin (0.2-1.0) mg/dL AST (15-37) IU/L ALT (14-63) IU/L Alkaline Phosphatase (46-116) U/L Total Protein (6.4-8.2) g/dL Albumin (3.4-5.0) g/dL Globulin (2.6-4.0) g/dL Albumin/Globulin Ratio (0.9-1.6) Vitamin D 25-Hydroxy (30.0-100.0) ng/mL 01/20/21 01/20/21 Range/Units 05:05 06:20 WBC (4.0-11.0) K/uL RBC (4.50-5.90) M/uL Hgb (13.0-17.0) g/dL Hct (38.0-50.0) % MCV (80.0-98.0) fL MCH (27.0-32.0) pg MCHC (31.0-37.0) g/dL RDW Std Deviation (28.0-62.0) fl RDW Coeff of Lady (11.0-15.0) % Plt Count (150-400) K/uL MPV (7.40-12.00) fL Neut % (Auto) (48.0-80.0) % Lymph % (Auto) (16.0-40.0) % Long % (Auto) (0.0-15.0) % Eos % (Auto) (0.0-7.0) % Baso % (Auto) (0.0-1.5) % Neut # (Auto) (1.4-5.7) K/uL Lymph # (Auto) (0.6-2.4) K/uL Long # (Auto) (0.0-0.8) K/uL Eos # (Auto) (0.0-0.7) K/uL Baso # (Auto) (0.0-0.1) K/uL Nucleated RBC % /100WBC Nucleated RBCs # K/uL Sodium 137 (136-148) mmol/L Potassium 3.9 (3.5-5.1) mmol/L Chloride 101 (98-107) mmol/L Carbon Dioxide 29.9 (21.0-32.0) mmol/L BUN 15 (7.0-18.0) mg/dL Creatinine 1.4 H (0.8-1.3) mg/dL Est Cr Clr Drug Dosing 76.04 mL/min Estimated GFR (MDRD) > 60.0 ml/min Glucose 140 H (74-106) mg/dL POC Glucose 167 H (60-110) mg/dL Calcium 9.0 (8.5-10.1) mg/dL Magnesium 1.9 (1.8-2.4) mg/dL Total Bilirubin 0.5 (0.2-1.0) mg/dL AST 21 (15-37) IU/L ALT 45 (14-63) IU/L Alkaline Phosphatase 89 (46-116) U/L Total Protein 7.5 (6.4-8.2) g/dL Albumin 3.5 (3.4-5.0) g/dL Globulin 4.0 (2.6-4.0) g/dL Albumin/Globulin Ratio 0.9 (0.9-1.6) Vitamin D 25-Hydroxy 13.1 L (30.0-100.0) ng/mL Med Orders - Current: Current Medications Acetaminophen (Tylenol) 650 mg PO Q4H PRN PRN Reason: Pain (Mild 1-3)/fever Aspirin (Aspirin) 81 mg PO BEDTIME MALIK Last Admin: 01/19/21 20:49 Dose: 81 mg Documented by: Atorvastatin Calcium (Lipitor) 20 mg PO BEDTIME MALIK Last Admin: 01/19/21 20:49 Dose: 20 mg Documented by: Dextrose/Water (50% Dextrose In Water 50 Ml Syringe) 50 ml IV ASDIRECTED PRN PRN Reason: Hypoglycemia Diltiazem HCl (Diltiazem 180 Mg Cap.Cd) 180 mg PO DAILY [facility] Last Admin: 01/20/21 08:41 Dose: 180 mg Documented by: Enoxaparin Sodium (Lovenox) 40 mg SUBCUT Q24H MALIK Last Admin: 01/19/21 19:41 Dose: 40 mg Documented by: Glucagon (Glucagon,Human Recombinant 1 Mg Vial) 1 mg IM ASDIRECTED PRN PRN Reason: Hypoglycemia Insulin Aspart (Insulin Aspart 100 Units/Ml 3 Ml Pen) 0 unit SUBCUT TIDAC MALIK; Protocol Last Admin: 01/20/21 08:40 Dose: 1 unit Documented by: Labetalol HCl (Normodyne) 20 mg IVPUSH Q4H PRN; Protocol PRN Reason: Hypotension Ondansetron HCl (Ondansetron 4 Mg/2 Ml Sdv) 4 mg IVPUSH Q4H PRN PRN Reason: Nausea Last Admin: 01/19/21 11:28 Dose: 4 mg Documented by: Sodium Chloride (Saline Flush) 2.5 ml FLUSH ASDIRECTED PRN PRN Reason: Keep Vein Open Last Admin: 01/18/21 14:10 Dose: 2.5 ml Documented by: Sodium Chloride (Saline Flush) 10 ml FLUSH ASDIRECTED PRN PRN Reason: Keep Vein Open Last Admin: 01/18/21 14:10 Dose: 10 ml Documented by: Discontinued Medications Gadobenate Dimeglumine (Gadobenate Dimeglumine 529 Mg/Ml 20 Ml Sdv) 20 ml IVPU SH ONETIME STA Stop: 01/19/21 07:38 Last Admin: 01/19/21 08:05 Dose: 20 ml Documented by: Sodium Chloride (Normal Saline) 1,000 mls @ 999 mls/hr IV BOLUS ONE Stop: 01/18/21 15:07 Last Admin: 01/18/21 14:09 Dose: 999 mls/hr Documented by: Iopamidol (Isovue Multipack-370 (76%)) 100 ml IVPUSH ONETIME STA Stop: 01/18/21 16:44 Last Admin: 01/18/21 19:18 Dose: 100 ml Documented by: Meclizine HCl (Antivert) 25 mg PO ONETIME ONE Stop: 01/18/21 15:58 Last Admin: 01/18/21 16:07 Dose: 25 mg Documented by: Ondansetron HCl (Zofran) 4 mg IVPUSH ONETIME ONE Stop: 01/18/21 15:58 Last Admin: 01/18/21 16:07 Dose: 4 mg Documented by: Ondansetron HCl (Zofran) 4 mg IVPUSH ONETIME ONE Stop: 01/18/21 16:39 Last Admin: 01/18/21 17:59 Dose: 4 mg Documented by: - Exam General: Reports: Alert, Oriented Lungs: Reports: Clear to Auscultation, Normal Respiratory Effort Cardiovascular: Reports: Regular Rate, Regular Rhythm GI/Abdominal Exam: Normal Bowel Sounds Extremities: No Pedal Edema Psy/Mental Status: Reports: Alert <Shamir Vernon - Last Filed: 01/23/21 20:26> Discharge Summary - Referral to Home Health Primary Care Physician: Blair Wheatley MD - Patient Summary/Data Consults: Consultations 01/19/21 11:27 PT Evaluation and Treatment [CONS] Routine 01/19/21 12:16 Consult to Physician [CONS] Routine 01/19/21 12:18 Consult to Coupler [Consult to Diabetic Nurse Specialist] [CONS] Routine - Patient Data Vitals - Most Recent: Last Vital Signs Temp 36.6 C 01/20/21 07:15 Pulse 69 01/20/21 07:15 Resp 14 01/20/21 07:15 BP 148/94 H 01/20/21 07:15 Pulse Ox 96 01/20/21 07:15 Orthostatic Blood Pressure [ 214/107 Standing] Orthostatic Blood Pressure [ 195/104 Sitting] Orthostatic Blood Pressure [ 149/104 Supine] Med Orders - Current: Current Medications Discontinued Medications Acetaminophen (Acetaminophen 325 Mg Tab) 650 mg PO Q4H PRN PRN Reason: Pain (Mild 1-3)/fever Aspirin (Aspirin 81 Mg Tab.Chew) 81 mg PO BEDTIME [facility] Last Admin: 01/19/21 20:49 Dose: 81 mg Documented by: Atorvastatin Calcium (Atorvastatin 20 Mg Tab) 20 mg PO BEDTIME MALIK Last Admin: 01/19/21 20:49 Dose: 20 mg Documented by: Dextrose/Water (50% Dextrose In Water 50 Ml Syringe) 50 ml IV ASDIRECTED PRN PRN Reason: Hypoglycemia Diltiazem HCl (Diltiazem 180 Mg Cap.Cd) 180 mg PO DAILY [facility] Last Admin: 01/20/21 08:41 Dose: 180 mg Documented by: Enoxaparin Sodium (Enoxaparin 40 Mg/0.4 Ml Syringe) 40 mg SUBCUT Q24H MALIK Last Admin: 01/19/21 19:41 Dose: 40 mg Documented by: Gadobenate Dimeglumine (Gadobenate Dimeglumine 529 Mg/Ml 20 Ml Sdv) 20 ml IVPUSH ONETIME STA Stop: 01/19/21 07:38 Last Admin: 01/19/21 08:05 Dose: 20 ml Documented by: Glucagon (Glucagon,Human Recombinant 1 Mg Vial) 1 mg IM ASDIRECTED PRN PRN Reason: Hypoglycemia Hydrochlorothiazide (Hydrochlorothiazide 25 Mg Tab) 25 mg PO BEDTIME [facility] Last Admin: 01/19/21 20:49 Dose: 25 mg Documented by: Sodium Chloride (Normal Saline) 1,000 mls @ 999 mls/hr IV BOLUS ONE Stop: 01/18/21 15:07 Last Admin: 01/18/21 14:09 Dose: 999 mls/hr Documented by: Insulin Aspart (Insulin Aspart 100 Units/Ml 3 Ml Pen) 0 unit SUBCUT TIDAC [facility]; Protocol Last Admin: 01/20/21 08:40 Dose: 1 unit Documented by: Iopamidol (Isovue Multipack-370 (76%)) 100 ml IVPUSH ONETIME STA Stop: 01/18/21 16:44 Last Admin: 01/18/21 19:18 Dose: 100 ml Documented by: Labetalol HCl (Labetalol 100 Mg/20 Ml Mdv) 20 mg IVPUSH Q4H PRN; Protocol PRN Reason: Hypotension Meclizine HCl (Antivert) 25 mg PO ONETIME ONE Stop: 01/18/21 15:58 Last Admin: 01/18/21 16:07 Dose: 25 mg Documented by: Ondansetron HCl (Zofran) 4 mg IVPUSH ONETIME ONE Stop: 01/18/21 15:58 Last Admin: 01/18/21 16:07 Dose: 4 mg Documented by: Ondansetron HCl (Zofran) 4 mg IVPUSH ONETIME ONE Stop: 01/18/21 16:39 Last Admin: 01/18/21 17:59 Dose: 4 mg Documented by: Ondansetron HCl (Ondansetron 4 Mg/2 Ml Sdv) 4 mg IVPUSH Q4H PRN PRN Reason: Nausea Last Admin: 01/19/21 11:28 Dose: 4 mg Documented by: Sodium Chloride (Sodium Chloride 0.9% 2.5 Ml Syringe) 2.5 ml FLUSH ASDIRECTED PRN PRN Reason: Keep Vein Open Last Admin: 01/18/21 14:10 Dose: 2.5 ml Documented by: Sodium Chloride (Sodium Chloride 0.9% 10 Ml Syringe) 10 ml FLUSH ASDIRECTED PRN PRN Reason: Keep Vein Open Last Admin: 01/18/21 14:10 Dose: 10 ml Documented by: - Free Text/Narrative Note: I have seen and evaluated the patient with the resident. I discussed findings and treatment plan with the resident. I agree with the assessment and plan outlined in the resident's note.
--- NOTE | 2021-01-22 14:25 | ECHO ---
The ECHO report has been scanned into [employer] and can be seen in this patient's EMR (Electronic Medical Record) under the REPORTS section. The report has also been scanned into PACS. MARCELA
== END 2021-01-20 11:40 | disposition home or self-care (01) ==
LOC: MW.ED 13:44 → MW.MS 17:55 → UNDOADMOB 17:55
PROVIDERS: ADMIT Student in an Organized Health Care Education/Training Program; ATTEND Student in an Organized Health Care Education/Training Program
DX: R42 Dizziness and giddiness (principal); I10 Essential (primary) hypertension; E11.65 Type 2 diabetes mellitus with hyperglycemia; Z79.899 Other long term (current) drug therapy; Z79.82 Long term (current) use of aspirin; Z20.822 Contact with and (suspected) exposure to COVID-19
CPT/HCPCS: 0240U; 36415; 70496; 70498; 70553; 71045; 80048; 80053; 80061; 81003; 82306; 82962; 83036; 83735; 84443; 84484; 85025; 93005; 93306; 96374; 96376; 97162; 99285; A9270; A9577; J1650; J1815; J2405; J7030; Q9967; 93010; 96372; 99284; G0378

== ENCOUNTER 2022-09-02 22:35 | Emergency (ER) | payer BC ==
[2022-09-03 00:23] LABS: POTASSIUM,K 3.8 mmol/L (3.5-5.1)
== END 2022-09-03 01:01 | disposition home or self-care (01) ==
LOC: MW.ED 22:35
DX: I10 Essential (primary) hypertension (principal); Z79.899 Other long term (current) drug therapy; Z79.82 Long term (current) use of aspirin; Z79.84 Long term (current) use of oral hypoglycemic drugs
CPT/HCPCS: 36415; 80053; 84484; 85025; 93005; 93010; 99283

== ENCOUNTER 2022-09-06 09:55 | Emergency (ER) | payer BC | END 2022-09-06 10:30 | disposition home or self-care (01) | LOC: MW.ED 09:55 | DX: Z00.00 Encounter for general adult medical examination without abnormal findings (principal); I10 Essential (primary) hypertension; Z79.82 Long term (current) use of aspirin; Z79.899 Other long term (current) drug therapy | CPT/HCPCS: 93005; 99283 ==

== ENCOUNTER 2022-10-13 19:41 | Emergency (ER) | payer BC | END 2022-10-13 22:20 | disposition home or self-care (01) | LOC: MW.ED 19:41 | DX: I10 Essential (primary) hypertension (principal); Z79.82 Long term (current) use of aspirin; Z79.899 Other long term (current) drug therapy | CPT/HCPCS: 99283 ==

== ENCOUNTER 2024-02-28 12:00 | Emergency (ER) | payer MEDICAID ==
[2024-02-28] MEDS: Ibuprofen 600 MG Tab PO ONE (13:04)
[2024-02-28] MEDS: Cyclobenzaprine 10 MG Tab PO ONE (13:04)
== END 2024-02-28 13:09 | disposition home or self-care (01) ==
LOC: MW.ED 12:00
DX: S29.011A Strain of muscle and tendon of front wall of thorax, initial encounter (principal); I10 Essential (primary) hypertension; Z79.899 Other long term (current) drug therapy; X50.0XXA Overexertion from strenuous movement or load, initial encounter
CPT/HCPCS: 99283; A9270

== ENCOUNTER 2024-04-22 06:38 | Emergency (ER) | payer SELFPAY | END 2024-04-22 06:59 | disposition home or self-care (01) | LOC: MW.ED 06:38 | DX: R07.89 Other chest pain (principal); I10 Essential (primary) hypertension; Z79.899 Other long term (current) drug therapy | CPT/HCPCS: 99283; 99284 ==